=== PATIENT | female | born 1940 | race Caucasian/White ===

== ENCOUNTER 2018-06-30 11:47 | Inpatient (IN) | payer MEDICARE, OTHER ==
[~2018-06-30] VITALS: Ht 157.5 cm; Wt 70.0 kg
[~2018-06-30 11:47] MED LIST: ALEN70TA5; AMLO-147; ASPI-650; ATOR40TA21; BENA20TA4; BIMA2.5D4; BRIM5DRO11; CALC1TAB3; DORZ10DR22; FENO134C; FURO40TA4; HYDR-13; INSU100C5; INSU100V19; LEVA15HF6; LEVO75TA59; MECL-77; METF850T13; METO25TA54; MURO; NAPR-688; OMEG-135; OMEP20CA16; PIOG30TA19; PL1OP15; POTA8TAB46; PRAM0.2539
[2018-06-30] MEDS ORDERED: SOD CHLORIDE 0.9% 500 ML IV STA (12:26)
--- NOTE | 2018-06-30 12:57 | ERD ---
ER Documentation Chief Complaint Chief Complaint blood in stool x 3 days, skin color wnl, sent [place] pmd HPI 77-year-old woman complains of 3 days of bright red blood per rectum, remote history of hemorrhoids and hemorrhoidectomy. Patient denies abdominal pain but states she has been feeling weak and has had some dizziness, she was referred here by PMD for anemia and hemorrhoidal bleeding. She denies chest pain or shortness of breath, no vomiting or diarrhea, no fevers or chills. ROS All systems reviewed and are negative except as per history of present illness. Medications Home Meds Reported Medications Sodium Chloride* (Chaitanya-128*) 3.5 Gm Oint..gm., 1 APPLIC BOTH EYES QHS, TUB 06/30/18 Travoprost* (Travatan Z*) 2.5 Ml Drops, 1 DROP BOTH EYES HS, #1 BOTTLE 06/30/18 Pilocarpine Hcl* (Pilocarpine Hcl*) 1% - 15 Ml Drops, 1 DROP BOTH EYES QID, EA 06/30/18 Brimonidine Tartrate* (Alphagan P*) 0.1%-15 Ml Opht Drops, 1 DROP BOTH EYES Q8, #1 EA 06/30/18 Dorzolamide Hcl* (Dorzolamide Hcl*) 10 Ml Drops, 1 DROP BOTH EYES TID, #1 EA 06/30/18 Ezetimibe* (Zetia*) 10 Mg Tablet, 10 MG PO HS, TAB 06/30/18 Fenofibrate Nanocrystallized* (Fenofibrate*) 145 Mg Tablet, 145 MG PO DAILY, TAB 06/30/18 Cyclobenzaprine Hcl* (Cyclobenzaprine Hcl*) 10 Mg Tablet, 10 MG PO DAILY PRN for MUSCLE SPASMS, #60 TAB 06/30/18 Metoprolol Tartrate* (Lopressor*) 50 Mg Tab, 50 MG PO BID, #60 TAB 06/30/18 Magnesium Oxide* (Magnesium Oxide*) 400 Mg Tablet, 400 MG PO DAILY, TAB 06/30/18 Calcium Carbonate ([id number]) 500 Mg Tablet, 500 MG PO BID, TAB 06/30/18 Donepezil* (Donepezil*) 5 Mg Tablet, 5 MG PO DAILY, #30 TAB 06/30/18 Albuterol/Ipratropium* (Combivent Respimat*) 20-100 Mcg/Inh - 4 Gm Aer.w.adap, 1 PUFF INHALATION DAILY PRN for prn, #1 INHALER 06/30/18 Ferrous Sulfate* (Ferrous Sulfate*) 325 Mg Tabec, 325 MG PO BID, TAB 06/30/18 Ergocalciferol (Vitamin D2) (VITAMIN D2) 50,000 Unit Capsule, 88246 UNIT PO weekly, CAP 06/30/18 Celecoxib* (Celebrex*) 200 Mg Capsule, 200 MG PO DAILY, CAP 06/30/18 Meclizine Hcl* (Meclizine Hcl*) 25 Mg Tablet, 25 MG PO DAILY PRN for DIZZINESS, TAB 06/30/18 Atorvastatin* (Atorvastatin*) 40 Mg Tablet, 40 MG PO QHS, #30 TAB 06/30/18 Aspirin* (Aspirin* EC) 81 Mg Tablet.dr, 81 MG PO DAILY, TAB 06/30/18 Levothyroxine Sodium* (Levothyroxine Sodium*) 50 Mcg Tablet, 50 MCG PO BEFORE BREAKFAST, #30 TAB 06/30/18 Omeprazole* (Omeprazole*) 20 Mg Capsule.dr, 20 MG PO AC BREAKFAST, #30 CAP 06/30/18 Metformin* (Glucophage*) 1,000 Mg Tablet, 1000 MG PO BID, #60 TAB 06/30/18 Liraglutide (Victoza 3-Nico) 0.6 Mg/0.1 Ml Pen.injctr, 0.6 MG SQ DAILY, SYR 06/30/18 Discontinued Reported Medications Aspirin* (Aspirin* Chew) 81 Mg Tab.chew, 81 MG PO DAILY, TAB.CHEW 06/30/18 Levothyroxine Sodium* (Levothyroxine Sodium*) 50 Mcg Tablet, 50 MCG PO BEFORE BREAKFAST, #30 TAB 06/30/18 Levalbuterol* (Xopenex* HFA) 15 Gm Inha 05/21/10 Alendronate Sodium* (Fosamax*) 70 Mg Tablet 05/21/10 Bimatoprost (Lumigan) 2.5 Ml Drops 05/21/10 Dorzolamide-Timolol* (Cosopt*) 10 Ml Soln 05/21/10 Sodium Chloride* (Chaitanya-128*) 15 Ml Drops 05/21/10 Benazepril Hcl* (Benazepril Hcl*) 20 Mg Tablet 05/21/10 Pramipexole* (Mirapex*) 0.25 Mg Tablet 05/21/10 Amlodipine Besylate* (Amlodipine Besylate*) 10 Mg Tablet 05/21/10 Pioglitazone Hcl* (Actos*) 30 Mg Tablet 05/21/10 Pilocarpine Hcl* (Isopto Carpine*) 15 Ml Drops 05/21/10 Aspirin (Aspirin) 81 Mg Tablet 05/21/10 Fenofibrate, Micronized (Fenofibrate) 134 Mg Capsule 05/21/10 Fish Oil* (Fish Oil*) 1,000 Mg Cap 05/21/10 Furosemide* (Furosemide*) 40 Mg Tablet 05/21/10 Meclizine Hcl* (Meclizine Hcl*) 25 Mg Tablet 05/21/10 Metformin Hcl* (Metformin Hcl*) 850 Mg Tablet 05/21/10 Omeprazole* (Omeprazole*) 20 Mg Capsule. 05/21/10 Potassium Chloride (Potassium Chloride) 8 Meq Tablet.sa 05/21/10 Metoprolol Succinate (Toprol Xl) 25 Mg Tab.sr.24h 05/21/10 Calcium Carbonate/Vitamin D3 (Caltrate 600 W-D Tablet) 1 Tab Tablet 05/21/10 Atorvastatin (Lipitor) 40 Mg Tablet 05/21/10 Brimonidine Tartrate* (Alphagan P*) 10 Ml Drops 05/21/10 Levothyroxine Sodium (Levothroid) 75 Mcg Tablet 05/21/10 Hydrocodone Bit/Acetaminophen (Hydrocodone-Apap 5-500 Tab) 1 Tab Tablet 05/21/10 Naproxen* (Naproxen*) 500 Mg Tablet 05/21/10 Insulin Glargine,Hum.rec.anlog (Lantus) 100 U/Ml Cartridge 05/21/10 Insulin Glargine,Hum.rec.anlog (Lantus) 100 U/Ml Vial 05/21/10 Allergies Allergies: Coded Allergies: No Known Allergy (Verified Allergy, Mild, 05/21/10) PMhx/Soc Diabetes mellitus, hypertension, CAD, history of hemorrhoids History of Surgery: Yes (PACE MAKER,HIP REPLACEMENT,EYE SURGERY) Anesthesia Reaction: No Hx Neurological Disorder: No Hx Respiratory Disorders: Yes (HX.ASTHMA) Hx Cardiac Disorders: Yes (PACE MAKER -2008) Hx Psychiatric Problems: No Hx Miscellaneous Medical Probl: Yes (DM,HTN,CHOLETHIASIS,DYSLIPIDEMIA,DIVERTICULOSIS,GALLSTONES,CARDIOMEGALY) Hx Alcohol Use: No Hx Substance Use: No Hx Tobacco Use: No Smoking Status: Never smoker FmHx Family History: No diabetes Physical Exam Vitals Vital Signs Date Temp Pulse Resp B/P (MAP) Pulse Ox O2 O2 Flow FiO2 Time Delivery Rate 06/30/18 97.8 81 18 153/84 100 Room Air 14:46 (107) 06/30/18 97.8 82 16 177/82 100 Room Air 12:24 (113) 06/30/18 97.8 98 16 190/95 97 11:52 (126) Physical Exam GENERAL: Well-developed, well-nourished, well-hydrated, in no apparent distress, looks nontoxic in appearance HEENT: Moist mucous membranes, pink conjunctiva, no cervical spine tenderness or step-off deformities, no goiter, no jaundice or icterus, extraocular movements intact without pain. No submandibular induration, and no pharyngeal erythema NEURO: Alert and oriented 3, cranial nerves II through XII intact bilaterally, pupils equal round reactive to light, no focal deficits or facial asymmetry, sensation intact distally Strength 5/5 in upper and lower extremities bilaterally CARDIAC: Regular rate and rhythm, no murmurs rubs or gallops LUNGS: Clear bilaterally no wheezing crackles or stridor ABDOMEN: Soft nontender, no guarding, no rigidity, no rebound, no psoas sign no obturator sign. SKIN: Warm and dry to touch, no abrasions, contusions, or hematomas, no lacerations, no ecchymosis, no target lesions, and without ulcers EXTREMITIES: No clubbing cyanosis or edema, calves are bilaterally symmetrical, no Homans sign, no popliteal cord sign. Distal pulses equal and bilateral PSYCH: Normal affect without agitation or irritability Result Diagram: 06/30/18 1246 07/01/18 0550 Results 24 hrs Laboratory Tests Test 06/30/18 12:46 White Blood Count 6.1 10^3/ul Red Blood Count 4.80 10^6/ul Hemoglobin 13.7 g/dl Hematocrit 41.5 % Mean Corpuscular Volume 86.5 fl Mean Corpuscular Hemoglobin 28.5 pg Mean Corpuscular Hemoglobin Concent 33.0 g/dl Red Cell Distribution Width 13.5 % Platelet Count 193 10^3/UL Mean Platelet Volume 9.9 fl Immature Granulocytes % 1.200 % Neutrophils % 59.4 % Lymphocytes % 28.3 % Monocytes % 7.8 % Eosinophils % 2.5 % Basophils % 0.8 % Nucleated Red Blood Cells % 0.0 /100WBC Immature Granulocytes # 0.070 10^3/ul Neutrophils # 3.6 10^3/ul Lymphocytes # 1.7 10^3/ul Monocytes # 0.5 10^3/ul Eosinophils # 0.2 10^3/ul Basophils # 0.1 10^3/ul Nucleated Red Blood Cells # 0.0 10^3/ul Prothrombin Time 13.1 Sec Prothrombin Time Ratio 1.0 INR International Normalized Ratio 0.98 Activated Partial Thromboplast Time 29.6 Sec Urine Color STRAW Urine Clarity CLEAR Urine pH 6.0 Urine Specific [place] 1.009 Urine Ketones NEGATIVE mg/dL Urine Nitrite NEGATIVE mg/dL Urine Bilirubin NEGATIVE mg/dL Urine Urobilinogen NEGATIVE mg/dL Urine Leukocyte Esterase NEGATIVE Sameer/ul Urine Hemoglobin NEGATIVE mg/dL Urine Glucose 1+ mg/dL Urine Total Protein NEGATIVE mg/dl Sodium Level 136 mmol/L Potassium Level 4.0 mmol/L Chloride Level 98 mmol/L Carbon Dioxide Level 28 mmol/L Anion Gap 10 Blood Urea Nitrogen 17 mg/dl Creatinine 0.69 mg/dl Est Glomerular Filtrat Rate mL/min mL/min Glucose Level 138 mg/dl Calcium Level 10.0 mg/dl Total Bilirubin 0.5 mg/dl Direct Bilirubin 0.00 mg/dl Indirect Bilirubin 0.5 mg/dl Aspartate Amino Transf (AST/SGOT) 25 IU/L Alanine Aminotransferase (ALT/SGPT) 24 IU/L Alkaline Phosphatase 57 IU/L Troponin I < 0.012 ng/ml Total Protein 8.1 g/dl Albumin 4.3 g/dl Globulin 3.80 g/dl Albumin/Globulin Ratio 1.13 Lipase 118 U/L Current Medications Medications Dose Sig/Umesh Start Time Status Last (Trade) Ordered Route PRN Stop Time Admin Dose Reason Admin Sodium 500 ml @ Q1H STAT 06/30/18 DC 06/30/18 Chloride 500 mls/hr IV 12:26 12:26 06/30/18 13:25 10 mg DAILY PRN 06/30/18 Cyclobenzapri PO MUSCLE 15:00 ne HCl SPASMS (Flexeril) Meclizine 25 mg DAILY PRN 06/30/18 07/01/18 HCl PO DIZZINESS 15:00 13:35 (Antivert) Procedures/MDM IV line was established patient was placed on cardiac technician rhythm strip revealed a sinus rhythm at about 90 bpm with upright P and T waves. Patient was afebrile Administered 1 L normal saline IV, type and screen was ordered the patient is anemic she will be transfused. EKG performed, read by me revealed a normal sinus rhythm at 92 bpm, normal axis, narrow QRS complex, no concerning ST elevations or depressions noted CT scan of the abdomen and pelvis was performed, diverticulosis was noted, no acute inflammatory infectious pathology. Please refer to radiologist dictation for full report Chest X-ray 1V Interpreted by me: Soft Tissue: No acute abnormalities Bones: No acute abnormalities Mediastinum/Cardiac Silhouette/Lungs: No acute abnormalities Labs: CBC and electrolytes are normal, liver function tests were normal, coagulation profile was normal Patient admitted to [facility] for continued medical management as well as GI and surgical consultation. I spoke to both Dr. Zaman and Dr. Chowdhury Departure Diagnosis: Primary Impression: Rectal bleeding Additional Impression: Bleeding hemorrhoids Condition: PAM Chahal MD Jun 30, 2018 12:57
[2018-06-30] MEDS ORDERED: LIRA0.6P2 SQ (13:48)
[2018-06-30] MEDS ORDERED: MTF1000T PO (13:48)
[2018-06-30] MEDS ORDERED: ASPI-903 PO (13:49)
[2018-06-30] MEDS ORDERED: LEVO50TA7 PO (13:49)
[2018-06-30] MEDS ORDERED: OMEP20CA16 PO (13:49)
[2018-06-30] MEDS ORDERED: MECL-77 PO (13:50)
[2018-06-30] MEDS ORDERED: ASPI-817 PO (13:50)
[2018-06-30] MEDS ORDERED: ATOR40TA68 PO (13:50)
[2018-06-30] MEDS ORDERED: CELE200C PO (13:51)
[2018-06-30] MEDS ORDERED: ERGO500013 PO (13:51)
[2018-06-30] MEDS ORDERED: DONE5TAB7 PO (13:52)
[2018-06-30] MEDS ORDERED: IPRA4AER INHALATION (13:52)
[2018-06-30] MEDS ORDERED: FER325 PO (13:52)
[2018-06-30] MEDS ORDERED: METO-429 PO (13:53)
[2018-06-30] MEDS ORDERED: CALC500T91 PO (13:53)
[2018-06-30] MEDS ORDERED: MAGN400T28 PO (13:53)
[2018-06-30] MEDS ORDERED: EZET10TA31 PO (13:54)
[2018-06-30] MEDS ORDERED: CYCL10TA7 PO (13:54)
[2018-06-30] MEDS ORDERED: FENO145T37 PO (13:54)
[2018-06-30] MEDS ORDERED: PL1OP15 BOTH EYES (13:56)
[2018-06-30] MEDS ORDERED: BRIM15DR2 BOTH EYES (13:56)
[2018-06-30] MEDS ORDERED: DORZ10DR5 BOTH EYES (13:56)
[2018-06-30] MEDS ORDERED: TRAV2.5D BOTH EYES (13:56)
[2018-06-30] MEDS ORDERED: SODI3.5O4 BOTH EYES (13:57)
--- NOTE | 2018-06-30 14:53 | HP ---
Date/Time of Note Date/Time of Note DATE: 06/30/18 TIME: 14:41 Assessment/Plan VTE Prophylaxis Pharmacological prophylaxis: NA/contraindicated Pharm contraindication: low risk/ambulating Lines/Catheters IV Catheter Type (from Nrs): [place] [employer] Central line still needed: No Urinary Cath still in place: No Reason Cath still needed: urinary retention Assessment/Plan Assessment/Plan 1 rectal bleeding. History of previous rectal bleeding presence of hemorrhoids and diverticular disease. 2. Anemia of chronic disease with decline of H&H 3. History of hypertension now normotensive 4. Status post pacemaker implantation due to sick sinus syndrome and bradycar sai 5. Severe osteoporosis with a history of vertebral collapse with radiculopathy 6. History of cholelithiasis 7. Diabetes type 2 improved after weight loss 8. Bronchiectasis with history of recurrent bleeding hemoptysis. No significant bleeding the last more than 2 years; frequent episodes of pneumonia and on antibiotics multiple times. 9. Bronchial asthma on multiple inhalers 10. Dyslipidemia 11. Memory impairment 12. Glaucoma 13. Recurrent episodes of conjunctivitis 14. Pelvic arterial disease 15. 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 Hypertension with CHF out of control 16. Urinary incontinence with recurrent UTIs and history of cystocele 17. Hearing impairment 18.history of passing stone nephrolithiasis 19. Recurrent UTIs 20. Seasonal allergies 21.incomplete data Result Diagram: 06/30/18 1246 06/30/18 1246 Results 24hrs Laboratory Tests Test 06/30/18 12:46 White Blood Count 6.1 Red Blood Count 4.80 Hemoglobin 13.7 Hematocrit 41.5 Mean Corpuscular Volume 86.5 Mean Corpuscular Hemoglobin 28.5 L Mean Corpuscular Hemoglobin Concent 33.0 Red Cell Distribution Width 13.5 Platelet Count 193 Mean Platelet Volume 9.9 Immature Granulocytes % 1.200 H Neutrophils % 59.4 Lymphocytes % 28.3 Monocytes % 7.8 Eosinophils % 2.5 Basophils % 0.8 Nucleated Red Blood Cells % 0.0 Immature Granulocytes # 0.070 H Neutrophils # 3.6 Lymphocytes # 1.7 Monocytes # 0.5 Eosinophils # 0.2 Basophils # 0.1 Nucleated Red Blood Cells # 0.0 Prothrombin Time 13.1 Prothrombin Time Ratio 1.0 INR International Normalized Ratio 0.98 Activated Partial Thromboplast Time 29.6 Urine Color STRAW Urine Clarity CLEAR Urine pH 6.0 Urine Specific [place] 1.009 Urine Ketones NEGATIVE Urine Nitrite NEGATIVE Urine Bilirubin NEGATIVE Urine Urobilinogen NEGATIVE Urine Leukocyte Esterase NEGATIVE Urine Hemoglobin NEGATIVE Urine Glucose 1+ H Urine Total Protein NEGATIVE Sodium Level 136 Potassium Level 4.0 Chloride Level 98 Carbon Dioxide Level 28 Anion Gap 10 Blood Urea Nitrogen 17 Creatinine 0.69 Est Glomerular Filtrat Rate mL/min Glucose Level 138 Calcium Level 10.0 Total Bilirubin 0.5 Direct Bilirubin 0.00 Indirect Bilirubin 0.5 Aspartate Amino Transf (AST/SGOT) 25 Alanine Aminotransferase (ALT/SGPT) 24 Alkaline Phosphatase 57 Troponin I < 0.012 Total Protein 8.1 Albumin 4.3 Globulin 3.80 H Albumin/Globulin Ratio 1.13 Lipase 118 HPI/ROS Admit Date/Time Admit Date/Time 3-day history of persistent rectal bleeding with bright red blood. Weakness dizziness. Hx of Present Illness This is a 77 years old white female with history of having hemorrhoidal disease and previous history of rectal bleeding now is having a new onset of rectal bleeding. She is on multiple medications. Came today in the morning to the emergency room. Looked pale dizzy and short of breath. I have decided to admit the patient to find exact source of bleeding manage. I discussed with Dr. Tao; Surgeon for evaluation and Dr. Chowdhury for GI evaluation. Labs are pending. ROS Constitutional: chills, diaphoresis, disoriented, nausea, poor po, weight change (She lost about 3 pounds during the last month mainly by not eating.); No no complaints, No improved, No fatigue, No febrile, No other Eyes: redness, visual change; No no complaints, No pain, No discharge, No other ENT: congestion; No no complaints, No bleeding, No pain, No discharge, No dysphagia, No sore throat, No other Respiratory: cough, pleuritic pain, shortness of breath, sputum, wheezing; No no complaints, No pain, No other Cardiovascular: chest pain, lightheadedness, palpitations, paroxysmal nocturnal dyspnea; No no complaints, No edema, No orthopenea, No other Gastrointestinal: decreased appetite, passing stool, other (Rectal bleeding.); No no complaints, No pain, No blood, No constipation, No diarrhea, No flatus, No nausea, No vomiting Genitourinary: No no complaints, No bleeding, No dysuria, No discharge, No flank pain, No hematuria, No other Musculoskeletal: back pain, bone/joint pain, neck pain; No no complaints, No restricted range of motion, No swelling, No other Skin: pruritis, rash, other (Dry skin.); No no complaints, No bruising, No erythema, No laceration, No skin lesions Neurologic: No no complaints, No confusion, No dizziness, No focal-weakness, No headache, No syncope, No seizure, No other Endocrine: dry skin; No no complaints, No polyuria, No polydypsia, No temp intolerance, No weight change, No other Lymphatic: No no complaints, No adenopathy, No tender nodes, No lymphadema, No other PMH/Family/Social Past Medical History Medical History: angina, colitis, congestive heart failure, coronary artery disease, diabetes, diverticulitis, gallstones, GERD, GI bleed, high cholesterol, hypertension, irritable bowel syndrome, pancreatitis, peptic ulcer disease, renal disease, urinary tract infection Medications Current Medications Aspirin (Halfprin) 81 mg DAILY PO ; Start 06/30/18 at 15:00; Status UNV Atorvastatin Calcium (Lipitor) 40 mg QHS PO ; Start 06/30/18 at 21:00; Status UNV Brimonidine Tartrate (Alphagan P 0.1%) 1 drop Q8 BOTH EYES ; Start 06/30/18 at 15:00; Status UNV Calcium Carbonate (Oyster Shell Calcium) 0.5 gm BID PO ; Start 06/30/18 at 15:00; Status UNV Celecoxib (Celebrex) 200 mg DAILY PO ; Start 06/30/18 at 15:00; Status UNV Cyclobenzaprine HCl (Flexeril) 10 mg DAILY PRN PO MUSCLE SPASMS; Start 06/30/18 at 15:00; Status UNV Dorzolamide HCl (Trusopt) 1 drop TID BOTH EYES ; Start 06/30/18 at 21:00; Status UNV Ferrous Sulfate (Ferrous Sulfate (Ec)) 325 mg BID PO ; Start 06/30/18 at 15:00; Status UNV Levothyroxine Sodium (Synthroid) 50 mcg BEFORE BREAKFAST PO ; Start 07/01/18 at 07:00; Status UNV Magnesium Oxide (Mag-Ox 400) 400 mg DAILY PO ; Start 06/30/18 at 15:00; Status UNV Meclizine HCl (Antivert) 25 mg DAILY PRN PO DIZZINESS; Start 06/30/18 at 15:00; Status UNV Metformin HCl (Glucophage) 1,000 mg BID PO ; Start 06/30/18 at 15:00; Status UNV Metoprolol Tartrate (Lopressor) 50 mg BID PO ; Start 06/30/18 at 15:00; Status UNV Pilocarpine HCl (Isopto Carpine 1% Oph) 1 drop QID BOTH EYES ; Start 06/30/18 at 15:00; Status UNV Sodium Chloride (Chaitanya-128 Oph Oint) 1 applic QHS BOTH EYES ; Start 06/30/18 at 21:00; Status UNV Travoprost (Travatan) 1 drop HS BOTH EYES ; Start 06/30/18 at 21:00; Status UNV Albuterol (Proventil 0.083% (Neb)) 2.5 mg TID HHN ; Start 06/30/18 at 21:00; Status UNV Coded Allergies: No Known Allergy (Verified Allergy, Mild, 05/21/10) Past Surgical History Past Surgical Hx: angioplasty Family History Significant Family History: asthma, heart disease, COPD, diabetes, hypertension, lung disease Social History Alcohol Use: none Smoking Status: Never smoker Drug Use: none Exam/Review of Systems Vital Signs Vitals Vital Signs Date Temp Pulse Resp B/P (MAP) Pulse Ox O2 O2 Flow FiO2 Time Delivery Rate 06/30/18 97.8 82 16 177/82 100 Room Air 12:24 (113) Exam Constitutional: alert, oriented, well developed, distress, frail, other (Difficulty to walk. Getting tired easily.) Psych: anxiety, confusion, depression Head: normocephalic, atraumatic; No lacerations, No hematomas, No other Eyes: EOMI, nl lids, PERRL, icteric; No nl conjunctiva, No nl sclera, No fundi, disc, No other Neck: supple, jvd, bruits, nuchal rigidity; No non-tender, No masses, No thyromegaly, No other Respiratory: congested cough, diminished breath sounds, wheezing; No clear to auscultation, No normal air movement, No crackles/rales, No intercostal retraction, No labored breathing, No respirations, No tactile fremitus, No other Cardiovascular: regular rate and rhythm, nl pulses, bruits, edema, systolic murmur; No diastolic murmur, No gallop, No irregular rhythm, No jugular venous distention (JVD), No murmurs/extra sounds, No rub, No S3, No S4, No other Gastrointestinal: soft, nl liver, spleen, bowel sounds, other (Mildly tender mid abdomen and left lower quadrant with no rebound.); No non-tender, No ascites, No distended, No firm, No hepatomegaly, No mass, No rebound or guarding, No splenomegaly, No surgical scars, No tender Genitourinary - Female: nl adnexae, nl external genitalia; No CMT, No CVA tenderness, No uterus, No other Musculoskeletal: nl gait and stance (Unstable.), joint tenderness, muscle tone, muscle weakness, other (Status post right hip replacement with well-healed postsurgical scar.); No nl extremities to inspection, No range of motion, No spine non-tender, No swelling Extremities: normal pulses, clubbing 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
[2018-06-30] MEDS ORDERED: CYCLOBENZAPRINE 10 MG TAB PO PRN (15:00)
[2018-06-30] MEDS ORDERED: MECLIZINE 25 MG TAB PO PRN (15:00)
[2018-06-30 15:57] VITALS: BP 151/76; PULSE 90
[2018-06-30] MEDS ORDERED: GLUCAGON 1 MG INJ IM PRN (16:00)
[2018-06-30] MEDS ORDERED: ASPIRIN (EC) 81 MG TAB PO SCH (16:00)
[2018-06-30] MEDS ORDERED: GLUCOSE GEL 15 GRAM TUBE PO PRN ×2 (16:00)
[2018-06-30] MEDS ORDERED: DEXTROSE 50% 50 ML SYRINGE IV PRN ×2 (16:00)
[2018-06-30] MEDS ORDERED: GLUCOSE GEL 15 GRAM TUBE BUCCAL PRN (16:00)
[2018-06-30 16:28] VITALS: Ht 157.5 cm; Wt 70.0 kg
[2018-06-30] MEDS: ALBUTEROL 0.083% (NEB) 2.5 MG/3 ML AMP HHN SCH (17:04)
--- NOTE | 2018-06-30 17:19 | CONS ---
DATE OF ADMISSION: 06/30/2018 DATE OF CONSULTATION: 06/30/2018 The consultation has been requested by Dr. Weathers from Dr. Zaman and I am covering for Dr. Zaman, so I see the patient in consultation. REASON FOR CONSULTATION: Evaluate the patient for rectal bleeding. CHIEF COMPLAINT AND HISTORY OF PRESENT ILLNESS: In the emergency room, the patient states that in past 3 days namely since Friday, today is Friday, the patient has had daily bowel movement which had been mixed with fresh red blood. No diarrhea. No nausea, no vomiting. The patient has lost 10 pounds in past 3 months. PAST MEDICAL HISTORY: Diabetes mellitus, hypertension, cholelithiasis, dyslipidemia, diverticulosis, gallstones, cardiomegaly, congestive heart failure, coronary artery disease, pacemaker. Beside what was mentioned in history of present illness, the patient has been admitted in this hospital 10 years in 2009 because of hemoptysis and was diagnosed to have bronchiectasis in the right middle lobe and on this admission, the CT scan of the abdomen which included part of the lungs has revealed presence of bronchiectasis also in both right and left lower lobes. ALLERGIES: NOT KNOWN. MEDICATIONS: Please refer to reconciliation list of the medications. The patient is taking many medications at home. PAST SURGICAL HISTORY: 1. Right hip replacement. 2. Eye surgery for glaucoma several years ago. 3. History of hemorrhoid operation in 1993. 4. He has done colonoscopy 17 years ago. Since then, she has not had it. PHYSICAL EXAMINATION: GENERAL: The patient is awake, alert, oriented x3, in no acute distress. VITAL SIGNS: Last vital signs showed temperature 97.8, heart rate 81, respiration 18, blood pressure 153/84, saturation 100% on room air. HEAD AND NECK: Within normal limits. Trachea is in midline. There is no carotid bruit. CHEST: Symmetrical expansion. HEART: Regular rate and rhythm. No murmurs. LUNGS: Decreased breathing sound at bases. ABDOMEN: Mildly protruded with fat. There is evidence of injection of the insulin subcutaneously in the abdominal wall. Bowel sounds are present. There is some tenderness in both lower quadrants, more on the left side. No guarding, no rigidity, no rebound tenderness. EXTREMITIES: Lower extremities have no pitting edema. RECTAL: There is some tightness of the sphincter most probably due to previous operation of the hemorrhoid that she had many years ago, but grossly I cannot feel hemorrhoidal tissues but this has to be more evaluated by endoscopy and/or colonoscopy later on. LABORATORY RESULTS: WBC is 6100 today with 59% segmented, hemoglobin is 13.7, hematocrit 41.5, platelet count is 193. Chemistry: Sodium, potassium normal, BUN and creatinine normal. Globulin is slightly elevated at 3.80, albumin is 4.3. Glucose is 138. Coagulation profile: PT is normal at 13.1, INR is 0.98. Urine only shows 1+ glucose. IMAGING: Abdomen and pelvis CT scan was done today in the emergency room and was reported as follows: 1. No evidence of calcified urinary calculi or obstructive uropathy. No change in bilateral renal cyst with partial wall calcification. 2. Diverticulosis of sigmoid colon without CT evidence of diverticulitis. 3. Cholelithiasis which appears unchanged. No evidence of biliary ductal dilatation. 4. Hepatic fatty infiltration. IMPRESSION: 1. This is a 77-year-old female who presents because of 3 days having had stool mixed with blood per rectum. No diarrhea. The patient also admits to weight loss of 10 pounds in past 3 months. No nausea, no vomiting. With the impression of rectal bleeding, rule out colorectal pathology including malignancy, rule out bleeding from diverticular disease, rule out arteriovenous malformation and also consider the possibility of hemorrhoids. 2. The patient has history of hypertension. 3. Status post pacemaker placement. 4. Osteoporosis, vertebral collapse with radiculopathy. 5. History of asymptomatic cholelithiasis. 6. Diabetes mellitus type 2. 7. Bronchiectasis. 8. Dyslipidemia. 9. Glaucoma and history of operation for that. 10. Severe osteoarthritis of multiple joints. 11. History of right hip total replacement. 12. History of recurrent urinary tract infection and urinary incontinence. 13. History of hearing impairment. PLAN: The patient should have a GI consultation per Dr. Weathers's choice and should have a colonoscopy at least and most probably also should have EGD as well. After evaluation by colonoscopy, further recommendation will be made as far as surgery is concerned. Meanwhile, I am going to be following the patient closely with other colleagues. We will keep the patient on clear liquids. Dictated By: KEATON BERRY/BECK Conf#: [id number] [facility]#: [id number] CC: RAJAT WEATHERS MD; TAYLOR LORD MD;*EndCC* MTDD
[2018-06-30] MEDS: metFORMIN 500 MG TAB PO SCH (17:24)
[2018-06-30] MEDS: FERROUS SULFATE (EC) 325 MG TAB PO SCH (17:24)
[2018-06-30] MEDS: MAGNESIUM OXIDE 400 MG TAB PO SCH (17:24)
[2018-06-30] MEDS: CALCIUM CARBONATE 1.25 GM TAB PO SCH (17:25)
[2018-06-30] MEDS: BRIMONIDINE 0.1% 5 ML OPH BOTH EYES SCH ×2 (17:25→21:28)
[2018-06-30] MEDS: CELECOXIB 200 MG CAP PO SCH (17:25)
[2018-06-30] MEDS: METOPROLOL 50 MG TAB PO SCH (17:25)
[2018-06-30] MEDS: PILOCARPINE 1% BOTH EYES SCH ×2 (17:26→20:45)
[2018-06-30] MEDS ORDERED: INSULIN ASPART [NOVOLOG] 3 ML PEN SC SCH ×2 (18:00)
[2018-06-30] MEDS ORDERED: PEG/ELECTROLYTES 4L BTL PO ONE (18:30)
[2018-06-30 20:00] VITALS: BP 150/83; PULSE 91; RESP 17
[2018-06-30] MEDS: ATORVASTATIN 40 MG TAB PO SCH (20:45)
[2018-06-30] MEDS: DORZOLAMIDE 2% 10 ML OPH BOTH EYES SCH (20:46)
[2018-06-30] MEDS: LATANOPROST 0.005% 2.5 ML OPH BOTH EYES SCH ×2 (20:46→20:55)
[2018-06-30] MEDS: SODIUM CHLORIDE 5% 2.5 GM OPH OINT BOTH EYES SCH (20:47)
--- NOTE | 2018-06-30 21:27 | CONS ---
Date/Time of Note Date/Time of Note DATE: 06/30/18 TIME: 21:19 Assessment/Plan Assessment/Plan Hospital Course rectal bleeding. History of previous rectal bleeding presence of hemorrhoids and diverticular disease. Anemia of chronic disease with decline of H&H proceed with w-up monitor h/h transfuse as needed GI and surg eval History of hypertension now normotensive Status post pacemaker implantation due to sick sinus syndrome and bradycardia Severe osteoporosis with a history of vertebral collapse with radiculopathy History of cholelithiasis Diabetes type 2 improved after weight loss Bronchiectasis with history of recurrent bleeding hemoptysis. No significant bleeding the last more than 2 years; frequent episodes of pneumonia and on antibiotics multiple times. 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 Hypertension with CHF out of control Urinary incontinence with recurrent UTIs and history of cystocele Hearing impairment history of passing stone nephrolithiasis Recurrent UTIs Seasonal allergies incomplete data Result Diagram: 06/30/18 1246 06/30/18 1246 Results 24hrs Laboratory Tests Test 06/30/18 12:46 06/30/18 17:19 White Blood Count 6.1 Red Blood Count 4.80 Hemoglobin 13.7 Hematocrit 41.5 Mean Corpuscular Volume 86.5 Mean Corpuscular Hemoglobin 28.5 L Mean Corpuscular Hemoglobin Concent 33.0 Red Cell Distribution Width 13.5 Platelet Count 193 Mean Platelet Volume 9.9 Immature Granulocytes % 1.200 H Neutrophils % 59.4 Lymphocytes % 28.3 Monocytes % 7.8 Eosinophils % 2.5 Basophils % 0.8 Nucleated Red Blood Cells % 0.0 Immature Granulocytes # 0.070 H Neutrophils # 3.6 Lymphocytes # 1.7 Monocytes # 0.5 Eosinophils # 0.2 Basophils # 0.1 Nucleated Red Blood Cells # 0.0 Prothrombin Time 13.1 Prothrombin Time Ratio 1.0 INR International Normalized Ratio 0.98 Activated Partial Thromboplast Time 29.6 Urine Color STRAW Urine Clarity CLEAR Urine pH 6.0 Urine Specific [place] 1.009 Urine Ketones NEGATIVE Urine Nitrite NEGATIVE Urine Bilirubin NEGATIVE Urine Urobilinogen NEGATIVE Urine Leukocyte Esterase NEGATIVE Urine Hemoglobin NEGATIVE Urine Glucose 1+ H Urine Total Protein NEGATIVE Sodium Level 136 Potassium Level 4.0 Chloride Level 98 Carbon Dioxide Level 28 Anion Gap 10 Blood Urea Nitrogen 17 Creatinine 0.69 Est Glomerular Filtrat Rate mL/min Glucose Level 138 Calcium Level 10.0 Total Bilirubin 0.5 Direct Bilirubin 0.00 Indirect Bilirubin 0.5 Aspartate Amino Transf (AST/SGOT) 25 Alanine Aminotransferase (ALT/SGPT) 24 Alkaline Phosphatase 57 Troponin I < 0.012 Total Protein 8.1 Albumin 4.3 Globulin 3.80 H Albumin/Globulin Ratio 1.13 Lipase 118 Bedside Glucose 95 Consultation Date/Type/Reason Date of Consultation: Jun 30, 2018 Type of Consult hemeon Reason for Consultation rectal bleeding Requesting Provider: RAJAT BYRNE MD Hx of Present Illness 77-year-old woman complains of 3 days of bright red blood per rectum, remote history of hemorrhoids and hemorrhoidectomy. Patient denies abdominal pain but states she has been feeling weak and has had some dizziness, she was referred here by PMD for anemia and hemorrhoidal bleeding. She denies chest pain or shor tness of breath, no vomiting or diarrhea, no fevers or chills. ROS All systems reviewed and are negative except as per history of present illness. Medications Home Meds Reported Medications Levalbuterol* (Xopenex* HFA) 15 Gm Inha 05/21/10 Alendronate Sodium* (Fosamax*) 70 Mg Tablet 05/21/10 Bimatoprost (Lumigan) 2.5 Ml Drops 05/21/10 Dorzolamide-Timolol* (Cosopt*) 10 Ml Soln 05/21/10 Sodium Chloride* (Chaitanya-128*) 15 Ml Drops 05/21/10 Benazepril Hcl* (Benazepril Hcl*) 20 Mg Tablet 05/21/10 Pramipexole* (Mirapex*) 0.25 Mg Tablet 05/21/10 Amlodipine Besylate* (Amlodipine Besylate*) 10 Mg Tablet 05/21/10 Pioglitazone Hcl* (Actos*) 30 Mg Tablet 05/21/10 Pilocarpine Hcl* (Isopto Carpine*) 15 Ml Drops 05/21/10 Aspirin (Aspirin) 81 Mg Tablet 05/21/10 Fenofibrate, Micronized (Fenofibrate) 134 Mg Capsule 05/21/10 Fish Oil* (Fish Oil*) 1,000 Mg Cap 05/21/10 Furosemide* (Furosemide*) 40 Mg Tablet 05/21/10 Meclizine Hcl* (Meclizine Hcl*) 25 Mg Tablet 05/21/10 Metformin Hcl* (Metformin Hcl*) 850 Mg Tablet 05/21/10 Omeprazole* (Omeprazole*) 20 Mg Capsule. 05/21/10 Potassium Chloride (Potassium Chloride) 8 Meq Tablet.sa 05/21/10 Metoprolol Succinate (Toprol Xl) 25 Mg Tab.sr.24h 05/21/10 Calcium Carbonate/Vitamin D3 (Caltrate 600 W-D Tablet) 1 Tab Tablet 05/21/10 Atorvastatin (Lipitor) 40 Mg Tablet 05/21/10 Brimonidine Tartrate* (Alphagan P*) 10 Ml Drops 05/21/10 Levothyroxine Sodium (Levothroid) 75 Mcg Tablet 05/21/10 Hydrocodone Bit/Acetaminophen (Hydrocodone-Apap 5-500 Tab) 1 Tab Tablet 05/21/10 Naproxen* (Naproxen*) 500 Mg Tablet 05/21/10 Insulin Glargine,Hum.rec.anlog (Lantus) 100 U/Ml Cartridge 05/21/10 Insulin Glargine,Hum.rec.anlog (Lantus) 100 U/Ml Vial 05/21/10 Allergies Allergies: Coded Allergies: No Known Allergy (Verified Allergy, Mild, 05/21/10) PMhx/Soc Diabetes mellitus, hypertension, CAD, history of hemorrhoids History of Surgery: Yes (PACE MAKER,HIP REPLACEMENT,EYE SURGERY) Anesthesia Reaction: No Hx Neurological Disorder: No Hx Respiratory Disorders: Yes (HX.ASTHMA) Hx Cardiac Disorders: Yes (PACE MAKER -2007) Hx Psychiatric Problems: No Hx Miscellaneous Medical Probl: Yes (DM,HTN,CHOLETHIASIS,DYSLIPIDEMIA,DIVERT ICULOSIS,GALLSTONES,CARDIOMEGALY) Hx Alcohol Use: No Hx Substance Use: No Hx Tobacco Use: No Smoking Status: Never smoker FmHx Family History: No diabetes Past Medical History Medical History: angina, colitis, congestive heart failure, coronary artery disease, diabetes, diverticulitis, gallstones, GERD, GI bleed, high cholesterol, hypertension, irritable bowel syndrome, pancreatitis, peptic ulcer disease, renal disease, urinary tract infection Medications Current Medications Aspirin (Halfprin) 81 mg DAILY PO ; Start 06/30/18 at 16:00; Status Hold Atorvastatin Calcium (Lipitor) 40 mg QHS PO Last administered on 06/30/18 20:45; Admin Dose 40 MG; Start 06/30/18 at 21:00 Brimonidine Tartrate (Alphagan P 0.1%) 1 drop Q8 BOTH EYES Last administered on 06/30/18 17:25; Admin Dose 1 DROP; Start 06/30/18 at 17:00 Calcium Carbonate (Oyster Shell Calcium) 1.25 gm BID PO Last administered on 06/30/18 17:25; Admin Dose 1.25 GM; Start 06/30/18 at 17:00 Celecoxib (Celebrex) 200 mg DAILY PO Last administered on 06/30/18 17:25; Admin Dose 200 MG; Start 06/30/18 at 17:00 Cyclobenzaprine HCl (Flexeril) 10 mg DAILY PRN PO MUSCLE SPASMS; Start 06/30/18 at 15:00 Dorzolamide HCl (Trusopt) 1 drop TID BOTH EYES Last administered on 06/30/18 20:46; Admin Dose 1 DROP; Start 06/30/18 at 21:00 Ferrous Sulfate (Ferrous Sulfate (Ec)) 325 mg BID PO Last administered on 06/30/18 17:24; Admin Dose 325 MG; Start 06/30/18 at 16:00 Levothyroxine Sodium (Synthroid) 50 mcg BEFORE BREAKFAST PO ; Start 07/01/18 at 07:00 Magnesium Oxide (Mag-Ox 400) 400 mg DAILY PO Last administered on 06/30/18 17:24; Admin Dose 400 MG; Start 06/30/18 at 17:00 Meclizine HCl (Antivert) 25 mg DAILY PRN PO DIZZINESS; Start 06/30/18 at 15:00 Metformin HCl (Glucophage) 1,000 mg BID WITH MEALS PO Last administered on 06/30/18 17:24; Admin Dose 1,000 MG; Start 06/30/18 at 18:00 Metoprolol Tartrate (Lopressor) 50 mg BID PO Last administered on 06/30/18 17:25; Admin Dose 50 MG; Start 06/30/18 at 16:00 Pilocarpine HCl (Isopto Carpine 1% Oph) 1 drop QID BOTH EYES Last administered on 06/30/18 20:45; Admin Dose 1 DROP; Start 06/30/18 at 17:00 Sodium Chloride (Chaitanya-128 Oph Oint) 1 applic QHS BOTH EYES Last administered on 06/30/18at 20:47; Admin Dose 1 APPLIC; Start 06/30/18 at 21:00 Latanoprost (Xalatan) 1 drop HS BOTH EYES ; Start 06/30/18 at 21:00 Albuterol (Proventil 0.083% (Neb)) 2.5 mg TID RESP THERAPY HHN Last administered on 06/30/18at 17:04; Admin Dose 2.5 MG; Start 06/30/18 at 17:00 Glucose (Glutose) 15 gm Q15M PRN PO DECREASED GLUCOSE; Start 06/30/18 at 16:00 Glucose (Glutose) 22.5 gm Q15M PRN PO DECREASED GLUCOSE; Start 06/30/18 at 16:00 Dextrose (D50w Syringe) 25 ml Q15M PRN IV DECREASED GLUCOSE; Start 06/30/18 at 16:00 Dextrose (D50w Syringe) 50 ml Q15M PRN IV DECREASED GLUCOSE; Start 06/30/18 at 16:00 Glucagon (Glucagen) 1 mg Q15M PRN IM DECREASED GLUCOSE; Start 06/30/18 at 16:00 Glucose (Glutose) 15 gm Q15M PRN BUCCAL DECREASED GLUCOSE; Start 06/30/18 at 16:00 Diagnostic Test (Pha) (Accu-Chek) 1 ea 02 XX ; Start 07/01/18 at 02:00 Insulin Aspart (Novolog Insulin Pen) NOVOLOG *MILD* ALGORITHM Q6 SC ; Start 06/30/18 at 18:00 Influenza Virus Vaccine Quadrival (Fluzone) 0.5 ml ONCE ONCE IM* ; Start 07/01/18 at 10:00; Stop 07/01/18 at 10:01 Allergies: Coded Allergies: No Known Allergy (Verified Allergy, Mild, 05/21/10) Past Surgical History Past Surgical Hx: angioplasty Social History Alcohol Use: none Smoking Status: Never smoker Drug Use: none Exam/Review of Systems Vital Signs Vitals Vital Signs Date Temp Pulse Resp B/P (MAP) Pulse Ox O2 O2 Flow FiO2 Time Delivery Rate 06/30/18 88 16 99 21 17:05 06/30/18 98.1 151/76 Room Air 15:57 (101) Exam GENERAL: Well-developed, well-nourished, well-hydrated, in no apparent distress, looks nontoxic in appearance HEENT: Moist mucous membranes, pink conjunctiva, no cervical spine tenderness or step-off deformities, no goiter, no jaundice or icterus, extraocular movements intact without pain. No submandibular induration, and no pharyngeal erythema NEURO: Alert and oriented 3, cranial nerves II through XII intact bilaterally, pupils equal round reactive to light, no focal deficits or facial asymmetry, sensation intact distally Strength 5/5 in upper and lower extremities bilaterally CARDIAC: Regular rate and rhythm, no murmurs rubs or gallops LUNGS: Clear bilaterally no wheezing crackles or stridor ABDOMEN: Soft nontender, no guarding, no rigidity, no rebound, no psoas sign no obturator sign. SKIN: Warm and dry to touch, no abrasions, contusions, or hematomas, no lacerations, no ecchymosis, no target lesions, and without ulcers EXTREMITIES: No clubbing cyanosis or edema, calves are bilaterally symmetrical, no Homans sign, no popliteal cord sign. Distal pulses equal and bilateral PSYCH: Normal affect without agitation or irritability Medications Medications Current Medications Aspirin (Halfprin) 81 mg DAILY PO ; Start 06/30/18 at 16:00; Status Hold Atorvastatin Calcium (Lipitor) 40 mg QHS PO Last administered on 06/30/18at 20:45; Admin Dose 40 MG; Start 06/30/18 at 21:00 Brimonidine Tartrate (Alphagan P 0.1%) 1 drop Q8 BOTH EYES Last administered on 06/30/18at 17:25; Admin Dose 1 DROP; Start 06/30/18 at 17:00 Calcium Carbonate (Oyster Shell Calcium) 1.25 gm BID PO Last administered on 06/30/18at 17:25; Admin Dose 1.25 GM; Start 06/30/18 at 17:00 Celecoxib (Celebrex) 200 mg DAILY PO Last administered on 06/30/18 17:25; Admin Dose 200 MG; Start 06/30/18 at 17:00 Cyclobenzaprine HCl (Flexeril) 10 mg DAILY PRN PO MUSCLE SPASMS; Start 06/30/18 at 15:00 Dorzolamide HCl (Trusopt) 1 drop TID BOTH EYES Last administered on 06/30/18at 20:46; Admin Dose 1 DROP; Start 06/30/18 at 21:00 Ferrous Sulfate (Ferrous Sulfate (Ec)) 325 mg BID PO Last administered on 06/30/18at 17:24; Admin Dose 325 MG; Start 06/30/18 at 16:00 Levothyroxine Sodium (Synthroid) 50 mcg BEFORE BREAKFAST PO ; Start 07/01/18 at 07:00 Magnesium Oxide (Mag-Ox 400) 400 mg DAILY PO Last administered on 06/30/18at 17:24; Admin Dose 400 MG; Start 06/30/18 at 17:00 Meclizine HCl (Antivert) 25 mg DAILY PRN PO DIZZINESS; Start 06/30/18 at 15:00 Metformin HCl (Glucophage) 1,000 mg BID WITH MEALS PO Last administered on 06/30/18at 17:24; Admin Dose 1,000 MG; Start 06/30/18 at 18:00 Metoprolol Tartrate (Lopressor) 50 mg BID PO Last administered on 06/30/18at 17:25; Admin Dose 50 MG; Start 06/30/18 at 16:00 Pilocarpine HCl (Isopto Carpine 1% Oph) 1 drop QID BOTH EYES Last administered on 06/30/18at 20:45; Admin Dose 1 DROP; Start 06/30/18 at 17:00 Sodium Chloride (Chaitanya-128 Oph Oint) 1 applic QHS BOTH EYES Last administered on 06/30/18at 20:47; Admin Dose 1 APPLIC; Start 06/30/18 at 21:00 Latanoprost (Xalatan) 1 drop HS BOTH EYES ; Start 06/30/18 at 21:00 Albuterol (Proventil 0.083% (Neb)) 2.5 mg TID RESP THERAPY HHN Last administered on 06/30/18at 17:04; Admin Dose 2.5 MG; Start 06/30/18 at 17:00 Glucose (Glutose) 15 gm Q15M PRN PO DECREASED GLUCOSE; Start 06/30/18 at 16:00 Glucose (Glutose) 22.5 gm Q15M PRN PO DECREASED GLUCOSE; Start 06/30/18 at 16:00 Dextrose (D50w Syringe) 25 ml Q15M PRN IV DECREASED GLUCOSE; Start 06/30/18 at 16:00 Dextrose (D50w Syringe) 50 ml Q15M PRN IV DECREASED GLUCOSE; Start 1/22/19 at 16:00 Glucagon (Glucagen) 1 mg Q15M PRN IM DECREASED GLUCOSE; Start 06/30/18 at 16:00 Glucose (Glutose) 15 gm Q15M PRN BUCCAL DECREASED GLUCOSE; Start 06/30/18 at 16:00 Diagnostic Test (Pha) (Accu-Chek) 1 ea 02 XX ; Start 07/01/18 at 02:00 Insulin Aspart (Novolog Insulin Pen) NOVOLOG *MILD* ALGORITHM Q6 SC ; Start 06/30/18 at 18:00 Influenza Virus Vaccine Quadrival (Fluzone) 0.5 ml ONCE ONCE IM* ; Start 07/01/18 at 10:00; Stop 07/01/18 at 10:01 DOMINGO FOURNIER MD Jun 30, 2018 21:27
[2018-06-30] MEDS ORDERED: POTASSIUM CHLORIDE 50 ML IVPB PRN (23:00)
[2018-06-30] MEDS ORDERED: POTASSIUM CHLORIDE 50 ML IVPB SCH (23:00)
[2018-07-01] VITALS (12 sets, daily range): BP systolic 104–151; BP diastolic 63–78; PULSE 82–88; RESP 17–18
[2018-07-01] MEDS: FERROUS SULFATE (EC) 325 MG TAB PO SCH ×3 (01:00→20:11)
[2018-07-01] MEDS: METOPROLOL 50 MG TAB PO SCH ×3 (01:00→20:11)
[2018-07-01] MEDS: Insulin NOVOLOG SS MILD Algorithm (NPO/TPN/ENTERAL FEEDS) SC SCH ×4 (01:00→13:00)
[2018-07-01] MEDS ORDERED: INSULIN ASPART [NOVOLOG] 3 ML PEN SC SCH (01:00)
[2018-07-01] MEDS: ACCU-CHEK XX SCH (01:52)
[2018-07-01] MEDS ORDERED: ACCU-CHEK XX SCH (02:00)
[2018-07-01] MEDS: BRIMONIDINE 0.1% 5 ML OPH BOTH EYES SCH ×3 (05:15→20:13)
--- NOTE | 2018-07-01 06:09 | NUR ---
EOSS: Pt. rested comfortably overnight. No acute changes. Pt. is NPO for colonoscopy at 1130. Bowel prep in progress. Pt. is having blood in stool. Pt. denies having pain. Blood glucose monitored q4h. Will endorse care to oncoming nurse.
[2018-07-01] MEDS: LEVOTHYROXINE 50 MCG TAB PO SCH (06:19)
[2018-07-01] MEDS: metFORMIN 500 MG TAB PO SCH ×2 (08:00→17:39)
[2018-07-01] MEDS: ALBUTEROL 0.083% (NEB) 2.5 MG/3 ML AMP HHN SCH ×3 (08:05→17:34)
[2018-07-01] MEDS: CELECOXIB 200 MG CAP PO SCH (08:51)
[2018-07-01] MEDS: MAGNESIUM OXIDE 400 MG TAB PO SCH (08:52)
[2018-07-01] MEDS: CALCIUM CARBONATE 1.25 GM TAB PO SCH ×2 (08:52→20:11)
[2018-07-01] MEDS: PILOCARPINE 1% BOTH EYES SCH ×4 (08:59→20:12)
[2018-07-01] MEDS: DORZOLAMIDE 2% 10 ML OPH BOTH EYES SCH ×3 (08:59→20:13)
--- NOTE | 2018-07-01 09:02 | PN ---
Date/Time of Note Date/Time of Note DATE: 07/01/18 TIME: 08:57 Assessment/Plan VTE Prophylaxis Risk score (from Ns)>0 risk: 3 SCD applied (from [facility] [place]): No SCD contraindicated: low risk/ambulating Pharmacological prophylaxis: other (Bleeding.) Pharm contraindication: low risk/ambulating Lines/Catheters IV Catheter Type (from [place]): [place] [employer] line still needed: No Urinary Cath still in place: No Assessment/Plan Assessment/Plan 1 rectal bleeding. History of previous rectal bleeding presence of hemorrhoids and diverticular disease. Discussed with Dr. Nguyen and dr. Devine. Planned colonoscopy today. 2. Anemia of chronic disease with decline of H&H; H&H is stable. 3. History of hypertension now normotensive 4. Status post pacemaker implantation due to sick sinus syndrome and bradycardia 5. Severe osteoporosis with a history of vertebral collapse with radiculopathy 6. History of cholelithiasis 7. Diabetes type 2 improved after weight loss 8. Bronchiectasis with history of recurrent bleeding hemoptysis. No significant bleeding the last more than 2 years; frequent episodes of pneumonia and on antibiotics multiple times. 9. Bronchial asthma on multiple inhalers 10. Dyslipidemia 11. Memory impairment 12. Glaucoma 13. Recurrent episodes of conjunctivitis 14. Pelvic arterial disease 15. 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 Hypertension with CHF out of control 16. Urinary incontinence with recurrent UTIs and history of cystocele 17. Hearing impairment 18.history of passing stone nephrolithiasis 19. Recurrent UTIs 20. Seasonal allergies 21.incomplete data Result Diagram: 06/30/18 1246 07/01/18 0550 Results 24hrs Laboratory Tests Test 06/30/18 12:46 06/30/18 17:19 07/01/18 01:05 07/01/18 05:16 White Blood Count 6.1 Red Blood Count 4.80 Hemoglobin 13.7 Hematocrit 41.5 Mean Corpuscular 86.5 Volume Mean Corpuscular 28.5 L Hemoglobin Mean Corpuscular 33.0 Hemoglobin Concent Red Cell 13.5 Distribution Width Platelet Count 193 Mean Platelet Volume 9.9 Immature 1.200 H Granulocytes % Neutrophils % 59.4 Lymphocytes % 28.3 Monocytes % 7.8 Eosinophils % 2.5 Basophils % 0.8 Nucleated Red Blood 0.0 Cells % Immature 0.070 H Granulocytes # Neutrophils # 3.6 Lymphocytes # 1.7 Monocytes # 0.5 Eosinophils # 0.2 Basophils # 0.1 Nucleated Red Blood 0.0 Cells # Prothrombin Time 13.1 Prothrombin Time 1.0 Ratio INR International 0.98 Normalized Ratio Activated 29.6 Partial Thromboplast Time Urine Color STRAW Urine Clarity CLEAR Urine pH 6.0 Urine Specific 1.009 [place] Urine Ketones NEGATIVE Urine Nitrite NEGATIVE Urine Bilirubin NEGATIVE Urine Urobilinogen NEGATIVE Urine Leukocyte NEGATIVE Esterase Urine Hemoglobin NEGATIVE Urine Glucose 1+ H Urine Total Protein NEGATIVE Sodium Level 136 Potassium Level 4.0 Chloride Level 98 Carbon Dioxide Level 28 Anion Gap 10 Blood Urea Nitrogen 17 Creatinine 0.69 Est Glomerular Filtrat Rate mL/min Glucose Level 138 Calcium Level 10.0 Total Bilirubin 0.5 Direct Bilirubin 0.00 Indirect Bilirubin 0.5 Aspartate Amino 25 Transf (AST/SGOT) Alanine 24 Aminotransferase (AL T/SGPT) Alkaline Phosphatase 57 Troponin I < 0.012 Total Protein 8.1 Albumin 4.3 Globulin 3.80 H Albumin/Globulin 1.13 Ratio Lipase 118 Bedside Glucose 95 115 134 Test 07/01/18 05:50 Erythrocyte 22 Sedimentation Rate Absolute 0.116 H Reticulocyte Count Percent Reticulocyte 2.5 H Count Potassium Level 3.6 Uric Acid 4.5 Iron Level 79 Total Iron Binding 368 Capacity Percent Iron 21 L Saturation Ferritin 48.9 Lactate 347 Dehydrogenase Carcinoembryonic 0.9 Antigen Vitamin B12 Level 352 Folate 11.5 Thyroid Stimulating 2.710 Hormone (TSH) Subjective 24 Hr Interval Summary Free Text/Dictation Still I am having rectal bleeding. No pain. Constitutional: improved; No no complaints, No chills, No diaphoresis, No disoriented, No febrile, No poor po, No requiring IVF, No requiring O2, No other Eyes: redness; No no complaints, No pain, No discharge, No visual change, No other ENT: No no complaints, No bleeding, No pain, No congestion, No discharge, No dysphagia, No sore throat, No other Respiratory: No no complaints, No pain, No cough, No pleuritic pain, No shortness of breath, No sputum, No wheezing, No other Cardiovascular: lightheadedness; No no complaints, No chest pain, No edema, No orthopenea, No palpitations, No paroxysmal nocturnal dyspnea, No other Gastrointestinal: decreased appetite, flatus, passing stool; No no complaints, No pain, No blood, No constipation, No diarrhea, No nausea, No vomiting, No other Genitourinary: dysuria, flank pain; No no complaints, No bleeding, No discharge, No hematuria, No other Musculoskeletal: back pain, bone/joint pain, neck pain; No no complaints, No restricted range of motion, No swelling, No other Skin: No no complaints, No bruising, No erythema, No laceration, No pruritis, No rash, No skin lesions, No other Neurologic: confusion, dizziness, headache Endocrine: dry skin; No no complaints, No polyuria, No polydypsia, No temp intolerance, No other Psychological: anxiety, confusion; No no complaints, No nl mood/affect, No depression, No suicidal, No other Exam/Review of Systems Vital Signs Vitals Vital Signs Date Temp Pulse Resp B/P (MAP) Pulse Ox O2 O2 Flow FiO2 Time Delivery Rate 07/01/18 78 17 99 21 08:06 07/01/18 97.9 135/65 08:00 (88) 07/01/18 Room Air 02:04 Exam Constitutional: alert, oriented, well developed, distress, frail; No non-verbal, No obese, No other Psych: anxiety, depression; No no complaints, No nl mood/affect, No confusion, No suicidal, No other Head: normocephalic, atraumatic Eyes: EOMI, nl lids, PERRL; No nl conjunctiva, No nl sclera, No icteric, No fundi, disc, No other ENMT: No nl external ears & nose, No nl lips & teeth, No nl nasal mucosa & septum, No mucosa pink and moist, No intubated, No tympanic membranes, No other Neck: supple, jvd, bruits Respiratory: clear to auscultation, normal air movement, diminished breath soun ds Cardiovascular: regular rate and rhythm, bruits, other (Left-sided subclavian area pacemaker bodies palpable with no evidence of fluid accumulation.); No nl pulses, No diastolic murmur, No edema, No gallop, No irregular rhythm, No jugular venous distention (JVD), No murmurs/extra sounds, No rub, No systolic murmur, No S3, No S4 Gastrointestinal: soft, nl liver, spleen, non-tender (Mildly tender in the left lower quadrant.), bowel sounds, distended, other (Hemorrhoids looks intact.); No ascites, No firm, No hepatomegaly, No mass, No rebound or guarding, No splenomegaly, No surgical scars, No tender Musculoskeletal: No nl extremities to inspection, No nl gait and stance, No joint tenderness, No muscle tone, No muscle weakness, No range of motion, No spine non-tender, No swelling, No other Extremities: normal pulses (Diminished.), pitting pedal edema (Trace.); No calf tenderness, No cyanosis, No clubbing, No edema, No palpable cord, No tenderness, No other Neurological: [employer] II-XII intact (Hearing impairment.), nl strength (Decreased.); No nl mental status, No nl speech, No confused, No DTR's symmetric, No focal weakness, No lethargic, No numbness, No reflexes, No unresponsive, No other Skin: nl turgor (Decreased.); No rash or lesions, No diaphoresis, No ecchymosis, No laceration, No puncture, No other Medications Medications Current Medications Aspirin (Halfprin) 81 mg DAILY PO ; Start 06/30/18 at 16:00; Status Hold Atorvastatin Calcium (Lipitor) 40 mg QHS PO Last administered on 06/30/18at 20:45; Admin Dose 40 MG; Start 06/30/18 at 21:00 Brimonidine Tartrate (Alphagan P 0.1%) 1 drop Q8 BOTH EYES Last administered on 07/01/18at 05:15; Admin Dose 1 DROP; Start 06/30/18 at 17:00 Calcium Carbonate (Oyster Shell Calcium) 1.25 gm BID PO Last administered on 06/30/18at 17:25; Admin Dose 1.25 GM; Start 06/30/18 at 17:00 Celecoxib (Celebrex) 200 mg DAILY PO Last administered on 06/30/18at 17:25; Admin Dose 200 MG; Start 06/30/18 at 17:00 Cyclobenzaprine HCl (Flexeril) 10 mg DAILY PRN PO MUSCLE SPASMS; Start 06/30/18 at 15:00 Dorzolamide HCl (Trusopt) 1 drop TID BOTH EYES Last administered on 06/30/18at 20:46; Admin Dose 1 DROP; Start 06/30/18 at 21:00 Ferrous Sulfate (Ferrous Sulfate (Ec)) 325 mg BID PO Last administered on 06/30/18at 17:24; Admin Dose 325 MG; Start 06/30/18 at 16:00 Levothyroxine Sodium (Synthroid) 50 mcg BEFORE BREAKFAST PO ; Start 07/01/18 at 07:00 Magnesium Oxide (Mag-Ox 400) 400 mg DAILY PO Last administered on 06/30/18at 17:24; Admin Dose 400 MG; Start 06/30/18 at 17:00 Meclizine HCl (Antivert) 25 mg DAILY PRN PO DIZZINESS; Start 06/30/18 at 15:00 Metformin HCl (Glucophage) 1,000 mg BID WITH MEALS PO Last administered on 06/30/18at 17:24; Admin Dose 1,000 MG; Start 06/30/18 at 18:00 Metoprolol Tartrate (Lopressor) 50 mg BID PO Last administered on 06/30/18at 17:25; Admin Dose 50 MG; Start 06/30/18 at 16:00 Pilocarpine HCl (Isopto Carpine 1% Oph) 1 drop QID BOTH EYES Last administered on 06/30/18at 20:45; Admin Dose 1 DROP; Start 06/30/18 at 17:00 Sodium Chloride (Chaitanya-128 Oph Oint) 1 applic QHS BOTH EYES Last administered on 06/30/18at 20:47; Admin Dose 1 APPLIC; Start 06/30/18 at 21:00 Latanoprost (Xalatan) 1 drop HS BOTH EYES ; Start 06/30/18 at 21:00 Albuterol (Proventil 0.083% (Neb)) 2.5 mg TID RESP THERAPY HHN Last a dministered on 07/01/18at 08:05; Admin Dose 2.5 MG; Start 06/30/18 at 17:00 Glucose (Glutose) 15 gm Q15M PRN PO DECREASED GLUCOSE; Start 06/30/18 at 16:00 Glucose (Glutose) 22.5 gm Q15M PRN PO DECREASED GLUCOSE; Start 06/30/18 at 16:00 Dextrose (D50w Syringe) 25 ml Q15M PRN IV DECREASED GLUCOSE; Start 06/30/18 at 16:00 Dextrose (D50w Syringe) 50 ml Q15M PRN IV DECREASED GLUCOSE; Start 06/30/18 at 16:00 Glucagon (Glucagen) 1 mg Q15M PRN IM DECREASED GLUCOSE; Start 06/30/18 at 16:00 Glucose (Glutose) 15 gm Q15M PRN BUCCAL DECREASED GLUCOSE; Start 06/30/18 at 16:00 Diagnostic Test (Pha) (Accu-Chek) 1 ea 02 XX ; Start 07/01/18 at 02:00 Influenza Virus Vaccine Quadrival (Fluzone) 0.5 ml ONCE ONCE IM* ; Start 07/01/18 at 10:00; Stop 07/01/18 at 10:01 Potassium Chloride 50 ml @ 50 mls/hr Q1H PRN IVPB POTASSIUM REPLACEMENT PROTOCOL; Start 06/30/18 at 23:00 Insulin Aspart (Novolog Insulin Pen) (Adult SC Insulin - Mild Algorithm)... Q4 SC ; Start 07/01/18 at 01:00 RAJAT BYRNE MD Jul 01, 2018 09:02
[2018-07-01] MEDS: DEXTROSE 5%-0.9% NACL 1,000 ML IV SCH (10:20)
--- NOTE | 2018-07-01 11:31 | PREAC ---
Date/Time of Note Date/Time of Note DATE: 07/01/18 TIME: 11:29 Anesthesia Eval and Record Evaluation Time Pre-Procedure Interview DATE: 07/01/18 TIME: 11:29 Age 77 Sex female NPO: 8 hrs Preoperative diagnosis RECTAL BLEEDING Planned procedure COLONOSCOPY Past Medical History Past Medical History: Includes Cardio: HTN, Arrythmia Endo: Diabetes Pulm: Asthma Heme: Anemia Surgery & Anesthesia Issues No known issue Meds Anticoagulation: No Beta Kate within 24 hr: No Reason Beta Kate not given: Pt. not on B-Kate Reported Medications Sodium Chloride* (Chaitanya-128*) 3.5 Gm Oint..gm., 1 APPLIC BOTH EYES QHS, TUB 06/30/18 Travoprost* (Travatan Z*) 2.5 Ml Drops, 1 DROP BOTH EYES HS, #1 BOTTLE 06/30/18 Pilocarpine Hcl* (Pilocarpine Hcl*) 1% - 15 Ml Drops, 1 DROP BOTH EYES QID, EA 06/30/18 Brimonidine Tartrate* (Alphagan P*) 0.1%-15 Ml Opht Drops, 1 DROP BOTH EYES Q8, #1 EA 06/30/18 Dorzolamide Hcl* (Dorzolamide Hcl*) 10 Ml Drops, 1 DROP BOTH EYES TID, #1 EA 06/30/18 Ezetimibe* (Zetia*) 10 Mg Tablet, 10 MG PO HS, TAB 06/30/18 Fenofibrate Nanocrystallized* (Fenofibrate*) 145 Mg Tablet, 145 MG PO DAILY, TAB 06/30/18 Cyclobenzaprine Hcl* (Cyclobenzaprine Hcl*) 10 Mg Tablet, 10 MG PO DAILY PRN for MUSCLE SPASMS, #60 TAB 06/30/18 Metoprolol Tartrate* (Lopressor*) 50 Mg Tab, 50 MG PO BID, #60 TAB 06/30/18 Magnesium Oxide* (Magnesium Oxide*) 400 Mg Tablet, 400 MG PO DAILY, TAB 06/30/18 Calcium Carbonate ([id number]-179) 500 Mg Tablet, 500 MG PO BID, TAB 06/30/18 Donepezil* (Donepezil*) 5 Mg Tablet, 5 MG PO DAILY, #30 TAB 06/30/18 Albuterol/Ipratropium* (Combivent Respimat*) 20-100 Mcg/Inh - 4 Gm Aer.w.adap, 1 PUFF INHALATION DAILY PRN for prn, #1 INHALER 06/30/18 Ferrous Sulfate* (Ferrous Sulfate*) 325 Mg Tabec, 325 MG PO BID, TAB 06/30/18 Ergocalciferol (Vitamin D2) (VITAMIN D2) 50,000 Unit Capsule, 41366 UNIT PO weekly, CAP 06/30/18 Celecoxib* (Celebrex*) 200 Mg Capsule, 200 MG PO DAILY, CAP 06/30/18 Meclizine Hcl* (Meclizine Hcl*) 25 Mg Tablet, 25 MG PO DAILY PRN for DIZZINESS, TAB 06/30/18 Atorvastatin* (Atorvastatin*) 40 Mg Tablet, 40 MG PO QHS, #30 TAB 06/30/18 Aspirin* (Aspirin* EC) 81 Mg Tablet.dr, 81 MG PO DAILY, TAB 06/30/18 Levothyroxine Sodium* (Levothyroxine Sodium*) 50 Mcg Tablet, 50 MCG PO BEFORE BREAKFAST, #30 TAB 06/30/18 Omeprazole* (Omeprazole*) 20 Mg Capsule.dr, 20 MG PO AC BREAKFAST, #30 CAP 06/30/18 Metformin* (Glucophage*) 1,000 Mg Tablet, 1000 MG PO BID, #60 TAB 06/30/18 Liraglutide (Victoza 3-Nico) 0.6 Mg/0.1 Ml Pen.injctr, 0.6 MG SQ DAILY, SYR 06/30/18 Discontinued Reported Medications Aspirin* (Aspirin* Chew) 81 Mg Tab.chew, 81 MG PO DAILY, TAB.CHEW 06/30/18 Levothyroxine Sodium* (Levothyroxine Sodium*) 50 Mcg Tablet, 50 MCG PO BEFORE BREAKFAST, #30 TAB 06/30/18 Levalbuterol* (Xopenex* HFA) 15 Gm Inha 05/21/10 Alendronate Sodium* (Fosamax*) 70 Mg Tablet 05/21/10 Bimatoprost (Lumigan) 2.5 Ml Drops 05/21/10 Dorzolamide-Timolol* (Cosopt*) 10 Ml Soln 05/21/10 Sodium Chloride* (Chaitanya-128*) 15 Ml Drops 05/21/10 Benazepril Hcl* (Benazepril Hcl*) 20 Mg Tablet 05/21/10 Pramipexole* (Mirapex*) 0.25 Mg Tablet 05/21/10 Amlodipine Besylate* (Amlodipine Besylate*) 10 Mg Tablet 05/21/10 Pioglitazone Hcl* (Actos*) 30 Mg Tablet 05/21/10 Pilocarpine Hcl* (Isopto Carpine*) 15 Ml Drops 05/21/10 Aspirin (Aspirin) 81 Mg Tablet 05/21/10 Fenofibrate, Micronized (Fenofibrate) 134 Mg Capsule 05/21/10 Fish Oil* (Fish Oil*) 1,000 Mg Cap 05/21/10 Furosemide* (Furosemide*) 40 Mg Tablet 05/21/10 Meclizine Hcl* (Meclizine Hcl*) 25 Mg Tablet 05/21/10 Metformin Hcl* (Metformin Hcl*) 850 Mg Tablet 05/21/10 Omeprazole* (Omeprazole*) 20 Mg Capsule. 05/21/10 Potassium Chloride (Potassium Chloride) 8 Meq Tablet.sa 05/21/10 Metoprolol Succinate (Toprol Xl) 25 Mg Tab.sr.24h 05/21/10 Calcium Carbonate/Vitamin D3 (Caltrate 600 W-D Tablet) 1 Tab Tablet 05/21/10 Atorvastatin (Lipitor) 40 Mg Tablet 05/21/10 Brimonidine Tartrate* (Alphagan P*) 10 Ml Drops 05/21/10 Levothyroxine Sodium (Levothroid) 75 Mcg Tablet 05/21/10 Hydrocodone Bit/Acetaminophen (Hydrocodone-Apap 5-500 Tab) 1 Tab Tablet 05/21/10 Naproxen* (Naproxen*) 500 Mg Tablet 05/21/10 Insulin Glargine,Hum.rec.anlog (Lantus) 100 U/Ml Cartridge 05/21/10 Insulin Glargine,Hum.rec.anlog (Lantus) 100 U/Ml Vial 05/21/10 Current Medications Aspirin (Halfprin) 81 mg DAILY PO ; Start 06/30/18 at 16:00; Status Hold Atorvastatin Calcium (Lipitor) 40 mg QHS PO Last administered on 06/30/18at 20:45; Admin Dose 40 MG; Start 06/30/18 at 21:00 Brimonidine Tartrate (Alphagan P 0.1%) 1 drop Q8 BOTH EYES Last administered on 07/01/18at 05:15; Admin Dose 1 DROP; Start 06/30/18 at 17:00 Calcium Carbonate (Oyster Shell Calcium) 1.25 gm BID PO Last administered on 06/30/18 17:25; Admin Dose 1.25 GM; Start 06/30/18 at 17:00 Celecoxib (Celebrex) 200 mg DAILY PO Last administered on 06/30/18 17:25; Admin Dose 200 MG; Start 06/30/18 at 17:00 Cyclobenzaprine HCl (Flexeril) 10 mg DAILY PRN PO MUSCLE SPASMS; Start 06/30/18 at 15:00 Dorzolamide HCl (Trusopt) 1 drop TID BOTH EYES Last administered on 07/01/18 08:59; Admin Dose 1 DROP; Start 06/30/18 at 21:00 Ferrous Sulfate (Ferrous Sulfate (Ec)) 325 mg BID PO Last administered on 06/30/18 17:24; Admin Dose 325 MG; Start 06/30/18 at 16:00 Levothyroxine Sodium (Synthroid) 50 mcg BEFORE BREAKFAST PO ; Start 07/01/18 at 07:00 Magnesium Oxide (Mag-Ox 400) 400 mg DAILY PO Last administered on 06/30/18 17:24; Admin Dose 400 MG; Start 06/30/18 at 17:00 Meclizine HCl (Antivert) 25 mg DAILY PRN PO DIZZINESS; Start 06/30/18 at 15:00 Metformin HCl (Glucophage) 1,000 mg BID WITH MEALS PO Last administered on 06/30/18at 17:24; Admin Dose 1,000 MG; Start 06/30/18 at 18:00 Metoprolol Tartrate (Lopressor) 50 mg BID PO Last administered on 06/30/18 17:25; Admin Dose 50 MG; Start 06/30/18 at 16:00 Pilocarpine HCl (Isopto Carpine 1% Oph) 1 drop QID BOTH EYES Last administered on 07/01/18 08:59; Admin Dose 1 DROP; Start 06/30/18 at 17:00 Sodium Chloride (Chaitanya-128 Oph Oint) 1 applic QHS BOTH EYES Last administered on 06/30/18at 20:47; Admin Dose 1 APPLIC; Start 06/30/18 at 21:00 Latanoprost (Xalatan) 1 drop HS BOTH EYES ; Start 06/30/18 at 21:00 Albuterol (Proventil 0.083% (Neb)) 2.5 mg TID RESP THERAPY HHN Last administered on 07/01/18at 08:05; Admin Dose 2.5 MG; Start 06/30/18 at 17:00 Glucose (Glutose) 15 gm Q15M PRN PO DECREASED GLUCOSE; Start 06/30/18 at 16:00 Glucose (Glutose) 22.5 gm Q15M PRN PO DECREASED GLUCOSE; Start 06/30/18 at 16:00 Dextrose (D50w Syringe) 25 ml Q15M PRN IV DECREASED GLUCOSE; Start 06/30/18 at 16:00 Dextrose (D50w Syringe) 50 ml Q15M PRN IV DECREASED GLUCOSE; Start 06/30/18 at 16:00 Glucagon (Glucagen) 1 mg Q15M PRN IM DECREASED GLUCOSE; Start 06/30/18 at 16:00 Glucose (Glutose) 15 gm Q15M PRN BUCCAL DECREASED GLUCOSE; Start 06/30/18 at 16:00 Diagnostic Test (Pha) (Accu-Chek) 1 ea 02 XX ; Start 07/01/18 at 02:00 Insulin Aspart (Novolog Insulin Pen) (Adult SC Insulin - Mild Algorithm)... Q4 SC ; Start 07/01/18 at 01:00 Dextrose/Sodium Chloride 1,000 ml @ 50 mls/hr Q20H IV Last administered on 07/01/18at 10:20; Admin Dose 50 MLS/HR; Start 07/01/18 at 09:30 Meds reviewed: Yes Allergies Coded Allergies: No Known Allergy (Verified Allergy, Mild, 05/21/10) Allergies Reviewed: Yes Labs/Studies Labs Reviewed: Reviewed by anesthesiologist Result Diagram: 06/30/18 1246 07/01/18 0550 Laboratory Tests 06/30/18 12:46 07/01/18 05:50 Blood Bank Test 06/30/18 12:50 Antibody Screen NEGATIVE Blood Type A NEGATIVE test: N/A Pre-procedure Exam Last vitals Vital Signs Date Temp Pulse Resp B/P (MAP) Pulse Ox O2 O2 Flow FiO2 Time Delivery Rate 07/01/18 78 17 99 21 08:06 07/01/18 97.9 135/65 08:00 (88) 07/01/18 Room Air 02:04 Airway: Adequate mouth opening, Adequate thyromental dist Mallampati: Mallampati II Teeth: Normal Lung: Normal Heart: Normal ASA Physical Status ASA physical status: 3 Emergency: None Planned Anesthetic General/MAC: MAC Planned Pain Management Parenteral pain med Pre-operative Attestations Prior to commencing anesthesia and surgery, the patient was re-evaluated, there was verification of: *The patient's identity *The results of appropriate recent lab work and preoperative vital signs *The above evaluation not changing prior to induction *Anesthetic plan, risk benefits, alternative and complications discussed with patient/family; questions answered; patient/family understands, accepts and wishes to proceed. POLI ANDERSON Jul 01, 2018 11:31
[2018-07-01] MEDS ORDERED: PROPOFOL 60 ML ONE (11:33)
[2018-07-01] MEDS ORDERED: LIDOCAINE 2% (SDV) 5 ML INJ ONE (11:33)
[2018-07-01] MEDS ORDERED: ONDANSETRON 4 MG INJ IV PRN (12:00)
[2018-07-01] MEDS ORDERED: LABETALOL HCL 20MG INJ IV PRN (12:00)
[2018-07-01] MEDS ORDERED: FENTAnyl 50 MCG/ML VIAL IV PRN ×2 (12:00)
[2018-07-01] MEDS ORDERED: EPHEDrine SULFATE 50 MG/5 ML SYG IV PRN (12:00)
--- NOTE | 2018-07-01 12:05 | CONS ---
Assessment/Plan Assessment/Plan Hospital Course rectal bleeding. History of previous rectal bleeding presence of hemorrhoids and diverticular disease. Anemia of chronic disease with decline of H&H w-up in progress monitor h/h transfuse as needed GI and surg eval- for colonoscopy today History of hypertension now normotensive Status post pacemaker implantation due to sick sinus syndrome and bradycardia Severe osteoporosis with a history of vertebral collapse with radiculopathy History of cholelithiasis Diabetes type 2 improved after weight loss Bronchiectasis with history of recurrent bleeding hemoptysis. No significant bleeding the last more than 2 years; frequent episodes of pneumonia and on antibiotics multiple times. 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 Hypertension with CHF out of control Urinary incontinence with recurrent UTIs and history of cystocele Hearing impairment history of passing stone nephrolithiasis Recurrent UTIs Seasonal allergies incomplete data Result Diagram: 06/30/18 1246 07/01/18 0550 Results 24hrs Laboratory Tests Test 06/30/18 12:46 06/30/18 17:19 07/01/18 01:05 07/01/18 05:16 White Blood Count 6.1 Red Blood Count 4.80 Hemoglobin 13.7 Hematocrit 41.5 Mean Corpuscular 86.5 Volume Mean Corpuscular 28.5 L Hemoglobin Mean Corpuscular 33.0 Hemoglobin Concent Red Cell 13.5 Distribution Width Platelet Count 193 Mean Platelet Volume 9.9 Immature 1.200 H Granulocytes % Neutrophils % 59.4 Lymphocytes % 28.3 Monocytes % 7.8 Eosinophils % 2.5 Basophils % 0.8 Nucleated Red Blood 0.0 Cells % Immature 0.070 H Granulocytes # Neutrophils # 3.6 Lymphocytes # 1.7 Monocytes # 0.5 Eosinophils # 0.2 Basophils # 0.1 Nucleated Red Blood 0.0 Cells # Prothrombin Time 13.1 Prothrombin Time 1.0 Ratio INR International 0.98 Normalized Ratio Activated 29.6 Partial Thromboplast Time Urine Color STRAW Urine Clarity CLEAR Urine pH 6.0 Urine Specific 1.009 [place] Urine Ketones NEGATIVE Urine Nitrite NEGATIVE Urine Bilirubin NEGATIVE Urine Urobilinogen NEGATIVE Urine Leukocyte NEGATIVE Esterase Urine Hemoglobin NEGATIVE Urine Glucose 1+ H Urine Total Protein NEGATIVE Sodium Level 136 Potassium Level 4.0 Chloride Level 98 Carbon Dioxide Level 28 Anion Gap 10 Blood Urea Nitrogen 17 Creatinine 0.69 Est Glomerular Filtrat Rate mL/min Glucose Level 138 Calcium Level 10.0 Total Bilirubin 0.5 Direct Bilirubin 0.00 Indirect Bilirubin 0.5 Aspartate Amino 25 Transf (AST/SGOT) Alanine 24 Aminotransferase (AL T/SGPT) Alkaline Phosphatase 57 Troponin I < 0.012 Total Protein 8.1 Albumin 4.3 Globulin 3.80 H Albumin/Globulin 1.13 Ratio Lipase 118 Bedside Glucose 95 115 134 Test 07/01/18 05:50 07/01/18 08:54 Erythrocyte 22 Sedimentation Rate Absolute 0.116 H Reticulocyte Count Percent Reticulocyte 2.5 H Count Potassium Level 3.6 Uric Acid 4.5 Iron Level 79 Total Iron Binding 368 Capacity Percent Iron 21 L Saturation Ferritin 48.9 Lactate 347 Dehydrogenase Carcinoembryonic 0.9 Antigen Vitamin B12 Level 352 Folate 11.5 Thyroid Stimulating 2.710 Hormone (TSH) Bedside Glucose 128 Consultation Date/Type/Reason Admit Date/Time Jun 30, 2018 at 15:17 Initial Consult Date 06/30/18 Type of Consult hemeonc Requesting Provider: RAJAT BYRNE MD 24 HR Interval Summary Free Text/Dictation all noted for endoscopy today Exam/Review of Systems Vital Signs Vitals Vital Signs Date Temp Pulse Resp B/P (MAP) Pulse Ox O2 O2 Flow FiO2 Time Delivery Rate 07/01/18 97.8 88 18 151/70 96 Room Air 11:25 (97) 07/01/18 21 08:06 Exam GENERAL: Well-developed, well-nourished, well-hydrated, in no apparent distress, looks nontoxic in appearance HEENT: Moist mucous membranes, pink conjunctiva, no cervical spine tenderness or step-off deformities, no goiter, no jaundice or icterus, extraocular movements intact without pain. No submandibular induration, and no pharyngeal erythema NEURO: Alert and oriented 3, cranial nerves II through XII intact bilaterally, pupils equal round reactive to light, no focal deficits or facial asymmetry, sensation intact distally Strength 5/5 in upper and lower extremities bilaterally CARDIAC: Regular rate and rhythm, no murmurs rubs or gallops LUNGS: Clear bilaterally no wheezing crackles or stridor ABDOMEN: Soft nontender, no guarding, no rigidity, no rebound, no psoas sign no obturator sign. SKIN: Warm and dry to touch, no abrasions, contusions, or hematomas, no lacerations, no ecchymosis, no target lesions, and without ulcers EXTREMITIES: No clubbing cyanosis or edema, calves are bilaterally symmetrical, no Homans sign, no popliteal cord sign. Distal pulses equal and bilateral PSYCH: Normal affect without agitation or irritability Medications Medications Current Medications Aspirin (Halfprin) 81 mg DAILY PO ; Start 06/30/18 at 16:00; Status Hold Atorvastatin Calcium (Lipitor) 40 mg QHS PO Last administered on 06/30/18at 20:45; Admin Dose 40 MG; Start 06/30/18 at 21:00 Brimonidine Tartrate (Alphagan P 0.1%) 1 drop Q8 BOTH EYES Last administered on 07/01/18at 05:15; Admin Dose 1 DROP; Start 06/30/18 at 17:00 Calcium Carbonate (Oyster Shell Calcium) 1.25 gm BID PO Last administered on 06/30/18at 17:25; Admin Dose 1.25 GM; Start 06/30/18 at 17:00 Celecoxib (Celebrex) 200 mg DAILY PO Last administered on 06/30/18at 17:25; Admin Dose 200 MG; Start 06/30/18 at 17:00 Cyclobenzaprine HCl (Flexeril) 10 mg DAILY PRN PO MUSCLE SPASMS; Start 06/30/18 at 15:00 Dorzolamide HCl (Trusopt) 1 drop TID BOTH EYES Last administered on 07/01/18at 08:59; Admin Dose 1 DROP; Start 06/30/18 at 21:00 Ferrous Sulfate (Ferrous Sulfate (Ec)) 325 mg BID PO Last administered on 06/30/18at 17:24; Admin Dose 325 MG; Start 06/30/18 at 16:00 Levothyroxine Sodium (Synthroid) 50 mcg BEFORE BREAKFAST PO ; Start 07/01/18 at 07:00 Magnesium Oxide (Mag-Ox 400) 400 mg DAILY PO Last administered on 06/30/18at 17:24; Admin Dose 400 MG; Start 06/30/18 at 17:00 Meclizine HCl (Antivert) 25 mg DAILY PRN PO DIZZINESS; Start 06/30/18 at 15:00 Metformin HCl (Glucophage) 1,000 mg BID WITH MEALS PO Last administered on 06/30/18at 17:24; Admin Dose 1,000 MG; Start 06/30/18 at 18:00 Metoprolol Tartrate (Lopressor) 50 mg BID PO Last administered on 06/30/18at 17:25; Admin Dose 50 MG; Start 06/30/18 at 16:00 Pilocarpine HCl (Isopto Carpine 1% Oph) 1 drop QID BOTH EYES Last administered on 07/01/18at 08:59; Admin Dose 1 DROP; Start 06/30/18 at 17:00 Sodium Chloride (Chaitanya-128 Oph Oint) 1 applic QHS BOTH EYES Last administered on 06/30/18at 20:47; Admin Dose 1 APPLIC; Start 06/30/18 at 21:00 Latanoprost (Xalatan) 1 drop HS BOTH EYES ; Start 06/30/18 at 21:00 Albuterol (Proventil 0.083% (Neb)) 2.5 mg TID RESP THERAPY HHN Last administered on 07/01/18at 08:05; Admin Dose 2.5 MG; Start 06/30/18 at 17:00 Glucose (Glutose) 15 gm Q15M PRN PO DECREASED GLUCOSE; Start 06/30/18 at 16:00 Glucose (Glutose) 22.5 gm Q15M PRN PO DECREASED GLUCOSE; Start 06/30/18 at 16:00 Dextrose (D50w Syringe) 25 ml Q15M PRN IV DECREASED GLUCOSE; Start 06/30/18 at 16:00 Dextrose (D50w Syringe) 50 ml Q15M PRN IV DECREASED GLUCOSE; Start 06/30/18 at 16:00 Glucagon (Glucagen) 1 mg Q15M PRN IM DECREASED GLUCOSE; Start 06/30/18 at 16:00 Glucose (Glutose) 15 gm Q15M PRN BUCCAL DECREASED GLUCOSE; Start 06/30/18 at 16:00 Diagnostic Test (Pha) (Accu-Chek) 1 ea 02 XX ; Start 07/01/18 at 02:00 Insulin Aspart (Novolog Insulin Pen) (Adult SC Insulin - Mild Algorithm)... Q4 SC ; Start 07/01/18 at 01:00 Dextrose/Sodium Chloride 1,000 ml @ 50 mls/hr Q20H IV Last administered on 07/01/18at 10:20; Admin Dose 50 MLS/HR; Start 07/01/18 at 09:30 Fentanyl (Sublimaze) 25 mcg PACU ORDER PRN IV MILD PAIN 1-3; Start 07/01/18 at 12:00; Status UNV Fentanyl (Sublimaze) 50 mcg PACU ORDER PRN IV MOD PAIN 4-6; Start 07/01/18 at 12:00; Status UNV Ondansetron HCl (Zofran Inj) 4 mg PACU ORDER PRN IV NAUSEA/VOMITING; Start 07/01/18 at 12:00; Status UNV Labetalol HCl (Labetalol) 5 mg PACU ORDER PRN IV HIGH BLOOD PRESSURE; Start 07/01/18 at 12:00; Status UNV Ephedrine Sulfate 5 mg PACU ORDER PRN IV BLOOD PRESSURE SUPPORT; Start 07/01/18 at 12:00; Status UNV Date/Time of Note Date/Time of Note DATE: 07/01/18 TIME: 12:03 DOMINGO FOURNIER MD Jul 01, 2018 12:05
--- NOTE | 2018-07-01 12:11 | PAC ---
Date/Time of Note Date/Time of Note DATE: 07/01/18 TIME: 12:11 Post-Anesthesia Notes Post-Anesthesia Note Last documented vital signs Vital Signs Date Temp Pulse Resp B/P (MAP) Pulse Ox O2 O2 Flow FiO2 Time Delivery Rate 07/01/18 97.8 88 18 151/70 96 Room Air 1211 (97) 07/01/18 21 08:06 Activity: WNL Respiratory function: WNL Cardiovascular function: WNL Mental status: Baseline Pain reasonably controlled: Yes Hydration appropriate: Yes Nausea/Vomiting absent: Yes POLI ANDERSON Jul 01, 2018 12:11
--- NOTE | 2018-07-01 12:45 | NUR ---
PACU TRANSFERRED TO [facility] [id number] IN STABLE COND. FROM GI LAB, SP COLONOSCOPY VSS. PT AWAKE AND ALERT, PAIN 0/10 PER PT. REPORT GIVEN TO RYNE YEN. MS Addendum: 07/01/18 at 1257 by LIZABETH KWONG RN Amended: Links added.
--- NOTE | 2018-07-01 13:17 | CONS ---
Assessment/Plan Assessment/Plan Hospital Course (Demo Recall) HTN: BP up to 190 on admission. Now normalized even without home med Rectal bleeding: s/p colonoscopy, results pending h/o PPM: less likely ICD but no CXR to confirm ?Subclavian stenosis: per pt she had a graft placed for occlusion -restart home nifedipine 60mg -hold ASA -f/u colo results -check CXR to determine PPM vs ICD Consultation Date/Type/Reason Admit Date/Time Jun 30, 2018 at 15:17 Date of Consultation: Jul 01, 2018 Type of Consult Cardiology Reason for Consultation h/o PPM, HTN Requesting Provider: RAJAT BYRNE MD Date/Time of Note DATE: 07/01/18 TIME: 13:17 Hx of Present Illness 77 yo F with a h/o PPM vs less likely ICD, ?subclavian venous stenosis s/p graft per pt, HTN, hemorrhoids, who presented with rectal bleeding. She was also noted to have elevated BP to 190. She had colonoscopy today with results pending. She denies chest pain or SOB. No current complaints. No known CAD or cardiomyopathy per pt. per hPI Past Medical History per HPI Home Meds Reported Medications Sodium Chloride* (Chaitanya-128*) 3.5 Gm Oint..gm., 1 APPLIC BOTH EYES QHS, TUB 06/30/18 Travoprost* (Travatan Z*) 2.5 Ml Drops, 1 DROP BOTH EYES HS, #1 BOTTLE 06/30/18 Pilocarpine Hcl* (Pilocarpine Hcl*) 1% - 15 Ml Drops, 1 DROP BOTH EYES QID, EA 06/30/18 Brimonidine Tartrate* (Alphagan P*) 0.1%-15 Ml Opht Drops, 1 DROP BOTH EYES Q8, #1 EA 06/30/18 Dorzolamide Hcl* (Dorzolamide Hcl*) 10 Ml Drops, 1 DROP BOTH EYES TID, #1 EA 06/30/18 Ezetimibe* (Zetia*) 10 Mg Tablet, 10 MG PO HS, TAB 06/30/18 Fenofibrate Nanocrystallized* (Fenofibrate*) 145 Mg Tablet, 145 MG PO DAILY, TAB 06/30/18 Cyclobenzaprine Hcl* (Cyclobenzaprine Hcl*) 10 Mg Tablet, 10 MG PO DAILY PRN for MUSCLE SPASMS, #60 TAB 06/30/18 Metoprolol Tartrate* (Lopressor*) 50 Mg Tab, 50 MG PO BID, #60 TAB 06/30/18 Magnesium Oxide* (Magnesium Oxide*) 400 Mg Tablet, 400 MG PO DAILY, TAB 06/30/18 Calcium Carbonate ([id number]) 500 Mg Tablet, 500 MG PO BID, TAB 06/30/18 Donepezil* (Donepezil*) 5 Mg Tablet, 5 MG PO DAILY, #30 TAB 06/30/18 Albuterol/Ipratropium* (Combivent Respimat*) 20-100 Mcg/Inh - 4 Gm Aer.w.adap, 1 PUFF INHALATION DAILY PRN for prn, #1 INHALER 06/30/18 Ferrous Sulfate* (Ferrous Sulfate*) 325 Mg Tabec, 325 MG PO BID, TAB 06/30/18 Ergocalciferol (Vitamin D2) (VITAMIN D2) 50,000 Unit Capsule, 91681 UNIT PO weekly, CAP 06/30/18 Celecoxib* (Celebrex*) 200 Mg Capsule, 200 MG PO DAILY, CAP 06/30/18 Meclizine Hcl* (Meclizine Hcl*) 25 Mg Tablet, 25 MG PO DAILY PRN for DIZZINESS, TAB 06/30/18 Atorvastatin* (Atorvastatin*) 40 Mg Tablet, 40 MG PO QHS, #30 TAB 06/30/18 Aspirin* (Aspirin* EC) 81 Mg Tablet.dr, 81 MG PO DAILY, TAB 06/30/18 Levothyroxine Sodium* (Levothyroxine Sodium*) 50 Mcg Tablet, 50 MCG PO BEFORE BREAKFAST, #30 TAB 06/30/18 Omeprazole* (Omeprazole*) 20 Mg Capsule.dr, 20 MG PO AC BREAKFAST, #30 CAP 06/30/18 Metformin* (Glucophage*) 1,000 Mg Tablet, 1000 MG PO BID, #60 TAB 06/30/18 Liraglutide (Victoza 3-Nico) 0.6 Mg/0.1 Ml Pen.injctr, 0.6 MG SQ DAILY, SYR 06/30/18 Discontinued Reported Medications Aspirin* (Aspirin* Chew) 81 Mg Tab.chew, 81 MG PO DAILY, TAB.CHEW 06/30/18 Levothyroxine Sodium* (Levothyroxine Sodium*) 50 Mcg Tablet, 50 MCG PO BEFORE BREAKFAST, #30 TAB 06/30/18 Levalbuterol* (Xopenex* HFA) 15 Gm Inha 05/21/10 Alendronate Sodium* (Fosamax*) 70 Mg Tablet 05/21/10 Bimatoprost (Lumigan) 2.5 Ml Drops 05/21/10 Dorzolamide-Timolol* (Cosopt*) 10 Ml Soln 05/21/10 Sodium Chloride* (Chaitanya-128*) 15 Ml Drops 05/21/10 Benazepril Hcl* (Benazepril Hcl*) 20 Mg Tablet 05/21/10 Pramipexole* (Mirapex*) 0.25 Mg Tablet 05/21/10 Amlodipine Besylate* (Amlodipine Besylate*) 10 Mg Tablet 05/21/10 Pioglitazone Hcl* (Actos*) 30 Mg Tablet 05/21/10 Pilocarpine Hcl* (Isopto Carpine*) 15 Ml Drops 05/21/10 Aspirin (Aspirin) 81 Mg Tablet 05/21/10 Fenofibrate, Micronized (Fenofibrate) 134 Mg Capsule 05/21/10 Fish Oil* (Fish Oil*) 1,000 Mg Cap 05/21/10 Furosemide* (Furosemide*) 40 Mg Tablet 05/21/10 Meclizine Hcl* (Meclizine Hcl*) 25 Mg Tablet 05/21/10 Metformin Hcl* (Metformin Hcl*) 850 Mg Tablet 05/21/10 Omeprazole* (Omeprazole*) 20 Mg Capsule.dr 05/21/10 Potassium Chloride (Potassium Chloride) 8 Meq Tablet.sa 05/21/10 Metoprolol Succinate (Toprol Xl) 25 Mg Tab.sr.24h 05/21/10 Calcium Carbonate/Vitamin D3 (Caltrate 600 W-D Tablet) 1 Tab Tablet 05/21/10 Atorvastatin (Lipitor) 40 Mg Tablet 05/21/10 Brimonidine Tartrate* (Alphagan P*) 10 Ml Drops 05/21/10 Levothyroxine Sodium (Levothroid) 75 Mcg Tablet 05/21/10 Hydrocodone Bit/Acetaminophen (Hydrocodone-Apap 5-500 Tab) 1 Tab Tablet 05/21/10 Naproxen* (Naproxen*) 500 Mg Tablet 05/21/10 Insulin Glargine,Hum.rec.anlog (Lantus) 100 U/Ml Cartridge 05/21/10 Insulin Glargine,Hum.rec.anlog (Lantus) 100 U/Ml Vial 05/21/10 Medications Current Medications Aspirin (Halfprin) 81 mg DAILY PO ; Start 06/30/18 at 16:00; Status Hold Atorvastatin Calcium (Lipitor) 40 mg QHS PO Last administered on 06/30/18at 20:45; Admin Dose 40 MG; Start 06/30/18 at 21:00 Brimonidine Tartrate (Alphagan P 0.1%) 1 drop Q8 BOTH EYES Last administered on 07/01/18at 05:15; Admin Dose 1 DROP; Start 06/30/18 at 17:00 Calcium Carbonate (Oyster Shell Calcium) 1.25 gm BID PO Last administered on 06/30/18at 17:25; Admin Dose 1.25 GM; Start 06/30/18 at 17:00 Celecoxib (Celebrex) 200 mg DAILY PO Last administered on 06/30/18at 17:25; Admin Dose 200 MG; Start 06/30/18 at 17:00 Cyclobenzaprine HCl (Flexeril) 10 mg DAILY PRN PO MUSCLE SPASMS; Start 06/30/18 at 15:00 Dorzolamide HCl (Trusopt) 1 drop TID BOTH EYES Last administered on 07/01/18at 08:59; Admin Dose 1 DROP; Start 06/30/18 at 21:00 Ferrous Sulfate (Ferrous Sulfate (Ec)) 325 mg BID PO Last administered on 06/30/18at 17:24; Admin Dose 325 MG; Start 06/30/18 at 16:00 Levothyroxine Sodium (Synthroid) 50 mcg BEFORE BREAKFAST PO ; Start 07/01/18 at 07:00 Magnesium Oxide (Mag-Ox 400) 400 mg DAILY PO Last administered on 06/30/18at 17:24; Admin Dose 400 MG; Start 06/30/18 at 17:00 Meclizine HCl (Antivert) 25 mg DAILY PRN PO DIZZINESS; Start 06/30/18 at 15:00 Metformin HCl (Glucophage) 1,000 mg BID WITH MEALS PO Last administered on 06/30/18at 17:24; Admin Dose 1,000 MG; Start 06/30/18 at 18:00 Metoprolol Tartrate (Lopressor) 50 mg BID PO Last administered on 06/30/18at 17:25; Admin Dose 50 MG; Start 06/30/18 at 16:00 Pilocarpine HCl (Isopto Carpine 1% Oph) 1 drop QID BOTH EYES Last administered on 07/01/18at 08:59; Admin Dose 1 DROP; Start 06/30/18 at 17:00 Sodium Chloride (Chaitanya-128 Oph Oint) 1 applic QHS BOTH EYES Last administered on 06/30/18at 20:47; Admin Dose 1 APPLIC; Start 06/30/18 at 21:00 Latanoprost (Xalatan) 1 drop HS BOTH EYES ; Start 06/30/18 at 21:00 Albuterol (Proventil 0.083% (Neb)) 2.5 mg TID RESP THERAPY HHN Last administered on 07/01/18at 13:12; Admin Dose 2.5 MG; Start 06/30/18 at 17:00 Glucose (Glutose) 15 gm Q15M PRN PO DECREASED GLUCOSE; Start 06/30/18 at 16:00 Glucose (Glutose) 22.5 gm Q15M PRN PO DECREASED GLUCOSE; Start 06/30/18 at 16:00 Dextrose (D50w Syringe) 25 ml Q15M PRN IV DECREASED GLUCOSE; Start 06/30/18 at 16:00 Dextrose (D50w Syringe) 50 ml Q15M PRN IV DECREASED GLUCOSE; Start 06/30/18 at 16:00 Glucagon (Glucagen) 1 mg Q15M PRN IM DECREASED GLUCOSE; Start 06/30/18 at 16:00 Glucose (Glutose) 15 gm Q15M PRN BUCCAL DECREASED GLUCOSE; Start 06/30/18 at 16:00 Diagnostic Test (Pha) (Accu-Chek) 1 ea 02 XX ; Start 07/01/18 at 02:00 Insulin Aspart (Novolog Insulin Pen) (Adult SC Insulin - Mild Algorithm)... Q4 SC ; Start 07/01/18 at 01:00 Dextrose/Sodium Chloride 1,000 ml @ 50 mls/hr Q20H IV Last administered on 07/01/18at 10:20; Admin Dose 50 MLS/HR; Start 07/01/18 at 09:30 Fentanyl (Sublimaze) 25 mcg PACU ORDER PRN IV MILD PAIN 1-3; Start 07/01/18 at 12:00; Stop 07/01/18 at 16:00 Fentanyl (Sublimaze) 50 mcg PACU ORDER PRN IV MOD PAIN 4-6; Start 07/01/18 at 12:00; Stop 07/01/18 at 16:00 Ondansetron HCl (Zofran Inj) 4 mg PACU ORDER PRN IV NAUSEA/VOMITING; Start 07/01/18 at 12:00; Stop 07/01/18 at 16:00 Labetalol HCl (Labetalol) 5 mg PACU ORDER PRN IV HIGH BLOOD PRESSURE; Start 07/01/18 at 12:00; Stop 07/01/18 at 16:00 Ephedrine Sulfate 5 mg PACU ORDER PRN IV BLOOD PRESSURE SUPPORT; Start 07/01/18 at 12:00; Stop 07/01/18 at 16:00 Allergies: Coded Allergies: No Known Allergy (Verified Allergy, Mild, 05/21/10) Past Surgical History Past Surgical Hx: angioplasty Social History Alcohol Use: none Smoking Status: Never smoker Drug Use: none Exam/Review of Systems Vital Signs Vitals Vital Signs Date Temp Pulse Resp B/P (MAP) Pulse Ox O2 O2 Flow FiO2 Time Delivery Rate 07/01/18 82 18 132/78 98 Nasal 2.0 12:37 (96) Cannula 07/01/18 98.2 12:06 07/01/18 21 08:06 Exam Constitutional: alert, oriented Psych: no complaints, nl mood/affect Head: normocephalic, atraumatic Neck: supple; No jvd Respiratory: clear to auscultation; No crackles/rales Cardiovascular: regular rate and rhythm; No edema, No systolic murmur Gastrointestinal: soft, non-tender; No distended Musculoskeletal: nl extremities to inspection Neurological: nl mental status, nl speech Labs Result Diagram: 06/30/18 1246 07/01/18 0550 Results 24hrs Laboratory Tests Test 06/30/18 17:19 07/01/18 01:05 07/01/18 05:16 07/01/18 05:50 Bedside Glucose 95 115 134 Erythrocyte 22 Sedimentation Rate Absolute 0.116 H Reticulocyte Count Percent Reticulocyte 2.5 H Count Potassium Level 3.6 Uric Acid 4.5 Iron Level 79 Total Iron Binding 368 Capacity Percent Iron 21 L Saturation Ferritin 48.9 Lactate 347 Dehydrogenase Carcinoembryonic 0.9 Antigen Vitamin B12 Level 352 Folate 11.5 Thyroid Stimulating 2.710 Hormone (TSH) Test 07/01/18 08:54 07/01/18 12:56 Bedside Glucose 128 100 ALTA RICHARDS Jul 01, 2018 13:17
--- NOTE | 2018-07-01 14:59 | PN ---
DATE: 07/01/2018 SUBJECTIVE: No specific complaint. Apparently today, the patient had colonoscopy done by Dr. Chowdhury, but unfortunately report of procedure by this time which is 2:43 p.m. is not in the computer, so I do not know exactly what has been going on. OBJECTIVE: GENERAL: Awake, alert, oriented. VITAL SIGNS: Temperature maximum 98.2, heart rate 84, respiration 18, blood pressure 152/78, saturation 98% on room air. HEART: Regular. LUNGS: Clear. ABDOMEN: Soft. No guarding. No rigidity. Bowel sounds are present. EXTREMITIES: Legs have no calf tenderness. LABORATORY DATA: The retic count is slightly elevated at 2.5 today. Chemistry: TIBC is 368, iron is 79, saturation is 21, which is low. ASSESSMENT: A 77-year-old female with history of 3 days' rectal bleeding, fresh blood mixed with the stool per the patient. The patient has history of hemorrhoidectomy many years ago and on physical exam yesterday as was mentioned, there is some tightness of the sphincter and some irregularity possibly due to previous hemorrhoidectomy. We are awaiting the official result of the colonoscopy to make sure that the patient does not have any tumor or any other pathology in the colon or rectum system and then make further decision. PLAN: The patient can be started on full liquid diet today and we will make a decision for advancement of diet tomorrow. Dictated By: KEATON DELEON MD PS/NTS Conf#: [id number] DID#: [id number] CC: TAYLOR CHOWDHURY MD; RAJAT BYRNE MD;*EndCC* MTDD
[2018-07-01] MEDS: INSULIN ASPART [NOVOLOG] 3 ML PEN SC SCH ×2 (17:42→20:10)
--- NOTE | 2018-07-01 18:05 | NUR ---
END OF SHIFT NOTES: PT STABLE, ALERT & ORIENTED X4. NO DISTRESS NOTED. ACCUCHECKS DONE. WARM SALINE ENEMA DONE IN THE MORNING FOR BOWEL PREP. COLONOSCOPY DONE TODAY. ADVANCED DIET TO FULL LIQUID. MEDICATED X1 FOR DIZZINESS AFTER THE PROCEDURE. PT VERBALIZED RELIEF. INSTRUCTED PT TO CALL FOR ASSISTANCE. VS WNL.HOURLY ROUNDING. CALL LIGHT WITHIN REACH.ALL NEEDS MET. NO NEW COMPLAINTS
[2018-07-01] MEDS: ATORVASTATIN 40 MG TAB PO SCH (20:11)
[2018-07-01] MEDS: SODIUM CHLORIDE 5% 2.5 GM OPH OINT BOTH EYES SCH (20:13)
[2018-07-01] MEDS: LATANOPROST 0.005% 2.5 ML OPH BOTH EYES SCH (20:15)
[2018-07-02] MEDS: ACCU-CHEK XX SCH (02:00)
[2018-07-02 02:35] VITALS: BP 143/70; PULSE 84; RESP 18
[2018-07-02] MEDS: DEXTROSE 5%-0.9% NACL 1,000 ML IV SCH (06:14)
[2018-07-02] MEDS: BRIMONIDINE 0.1% 5 ML OPH BOTH EYES SCH (06:16)
--- NOTE | 2018-07-02 06:23 | NUR ---
shift summary: S/P colostomy. Patient is alert oriented and ambulatory. She denies pain. VSS. Accucheck last night was 144, no insulin coverage. All due medications given. POC explained. continue to monitor
[2018-07-02 07:43] VITALS: BP 146/71; PULSE 89; RESP 18
[2018-07-02] MEDS: LEVOTHYROXINE 50 MCG TAB PO SCH (07:50)
[2018-07-02] MEDS: FERROUS SULFATE (EC) 325 MG TAB PO SCH (08:24)
[2018-07-02] MEDS: CALCIUM CARBONATE 1.25 GM TAB PO SCH (08:24)
[2018-07-02] MEDS: MAGNESIUM OXIDE 400 MG TAB PO SCH (08:25)
[2018-07-02] MEDS: CELECOXIB 200 MG CAP PO SCH (08:25)
[2018-07-02] MEDS: metFORMIN 500 MG TAB PO SCH (08:25)
[2018-07-02] MEDS: METOPROLOL 50 MG TAB PO SCH (08:25)
[2018-07-02] MEDS: INSULIN ASPART [NOVOLOG] 3 ML PEN SC SCH ×2 (08:28→12:31)
[2018-07-02] MEDS: DORZOLAMIDE 2% 10 ML OPH BOTH EYES SCH ×2 (08:32→12:55)
[2018-07-02] MEDS: PILOCARPINE 1% BOTH EYES SCH ×2 (08:32→12:54)
[2018-07-02] MEDS: ALBUTEROL 0.083% (NEB) 2.5 MG/3 ML AMP HHN SCH (08:48)
[2018-07-02] MEDS ORDERED: NIFEdipine (XL) 60 MG TAB PO SCH (09:00)
--- NOTE | 2018-07-02 10:00 | NUR ---
Shift Report: Pt is awake,alert and oriented. IV infusing to RAC. Pt had BM with blood tinged. Pt is aware to inform RN with BM result. Ambulate with assistance. Pt will be transferred to for continuity of care. Eyedrops and insulin pen sent with pt. Clothes and shoes with pt.
[2018-07-02 10:19] VITALS: BP 163/73; PULSE 85; RESP 20
--- NOTE | 2018-07-02 10:35 | NUR ---
NRSG NOTE Pt received to room 428. A/OX4. Skin check done. Skin intact. Krystle pad in place with pt stating she had rectal spotting this morning with BM. No complaints of pain or discomfort now. Insulin pen and 3 ophthalmic medications brought up with pt. Full liquid diet provided to pt. Oriented pt to call light and to bed alarm. Bed in lowest position, bed alarm on and call light within reach.
--- NOTE | 2018-07-02 11:16 | PDOCDIS ---
Discharge Instructions CONDITION [id number] Patient Condition: [id number] Guarded HOME CARE INSTRUCTIONS: [id number] Diet Instructions: [id number] Reduced Sodium ACTIVITY: [id number] Activity Restrictions: [id number] Slowly Increase Activity [id number] Bathing Restrictions: Otype6c Shower FOLLOW UP/APPOINTMENTS Follow-up Plan To see Dr. Byrne in 5 days with repeat of CBC BMP. REFERRALS Other Referrals Dr. Zaman in 1 week. OTHER ORDERS: Other Orders: Continue clear liquid diet. Back to ER or to the office if bleeding does not stop. SCHOOL/WORK RELEASE May return to School/Work on: Jul 04, 2018 May return to School/Work with: . None. RAJAT BYRNE MD Jul 02, 2018 11:16
--- NOTE | 2018-07-02 11:21 | DS ---
Date/Time of Note Date/Time of Note DATE: 07/02/18 TIME: 11:17 Discharge Summary Admission/Discharge Info Admit Date/Time Jun 30, 2018 at 15:17 Discharge Date/Time July 02, 2018 12 00. Hx of Present Illness This is a 77 years old white female with history of having hemorrhoidal disease and previous history of rectal bleeding now is having a new onset of rectal bleeding. She is on multiple medications. Came today in the morning to the emergency room. Looked pale dizzy and short of breath. I have decided to admit the patient to find exact source of bleeding manage. I discussed with Dr. Tao; Surgeon for evaluation and Dr. Chowdhury for GI evaluation. Labs are pending. Hospital Course Patient continues to have a mild amount of rectal bleeding even today. Discussed with the patient the results of colonoscopy which was basically negative for tumor but was positive for internal and external hemorrhoids. Discussed with Dr. Raymond. Recommended to perform a rectoscopy under anesthesia with the plan to decide the necessity and the volume of expected surgery to control bleeding. Meanwhile planned to start Proctocort suppository and follow the patient is an outpatient because she does not want surgical intervention now. Discussed with the patient if bleeding continues she must come back to the emergency room or call me might cellular number was given or come to the office. Discussed with Dr. Chowdhury who unfortunately did not put the procedure note yet but verbally explained me that there is no other source of bleeding during colonoscopy found. We will hold aspirin. Continue clear liquids. Resume preadmission medications. And be in touch with the patient daily. Home Meds Reported Medications Sodium Chloride* (Chaitanya-128*) 3.5 Gm Oint..gm., 1 APPLIC BOTH EYES QHS, TUB 06/30/18 Travoprost* (Travatan Z*) 2.5 Ml Drops, 1 DROP BOTH EYES HS, #1 BOTTLE 06/30/18 Pilocarpine Hcl* (Pilocarpine Hcl*) 1% - 15 Ml Drops, 1 DROP BOTH EYES QID, EA 06/30/18 Brimonidine Tartrate* (Alphagan P*) 0.1%-15 Ml Opht Drops, 1 DROP BOTH EYES Q8, #1 EA 06/30/18 Dorzolamide Hcl* (Dorzolamide Hcl*) 10 Ml Drops, 1 DROP BOTH EYES TID, #1 EA 06/30/18 Ezetimibe* (Zetia*) 10 Mg Tablet, 10 MG PO HS, TAB 06/30/18 Fenofibrate Nanocrystallized* (Fenofibrate*) 145 Mg Tablet, 145 MG PO DAILY, TAB 06/30/18 Cyclobenzaprine Hcl* (Cyclobenzaprine Hcl*) 10 Mg Tablet, 10 MG PO DAILY PRN for MUSCLE SPASMS, #60 TAB 06/30/18 Metoprolol Tartrate* (Lopressor*) 50 Mg Tab, 50 MG PO BID, #60 TAB 06/30/18 Magnesium Oxide* (Magnesium Oxide*) 400 Mg Tablet, 400 MG PO DAILY, TAB 06/30/18 Calcium Carbonate ([id number]) 500 Mg Tablet, 500 MG PO BID, TAB 06/30/18 Donepezil* (Donepezil*) 5 Mg Tablet, 5 MG PO DAILY, #30 TAB 06/30/18 Albuterol/Ipratropium* (Combivent Respimat*) 20-100 Mcg/Inh - 4 Gm Aer.w.adap, 1 PUFF INHALATION DAILY PRN for prn, #1 INHALER 06/30/18 Ferrous Sulfate* (Ferrous Sulfate*) 325 Mg Tabec, 325 MG PO BID, TAB 06/30/18 Ergocalciferol (Vitamin D2) (VITAMIN D2) 50,000 Unit Capsule, 70754 UNIT PO weekly, CAP 06/30/18 Celecoxib* (Celebrex*) 200 Mg Capsule, 200 MG PO DAILY, CAP 06/30/18 Meclizine Hcl* (Meclizine Hcl*) 25 Mg Tablet, 25 MG PO DAILY PRN for DIZZINESS, TAB 06/30/18 Atorvastatin* (Atorvastatin*) 40 Mg Tablet, 40 MG PO QHS, #30 TAB 06/30/18 Aspirin* (Aspirin* EC) 81 Mg Tablet.dr, 81 MG PO DAILY, TAB 06/30/18 Levothyroxine Sodium* (Levothyroxine Sodium*) 50 Mcg Tablet, 50 MCG PO BEFORE BREAKFAST, #30 TAB 06/30/18 Omeprazole* (Omeprazole*) 20 Mg Capsule.dr, 20 MG PO AC BREAKFAST, #30 CAP 06/30/18 Metformin* (Glucophage*) 1,000 Mg Tablet, 1000 MG PO BID, #60 TAB 06/30/18 Liraglutide (Victoza 3-Nico) 0.6 Mg/0.1 Ml Pen.injctr, 0.6 MG SQ DAILY, SYR 06/30/18 Discontinued Reported Medications Aspirin* (Aspirin* Chew) 81 Mg Tab.chew, 81 MG PO DAILY, TAB.CHEW 06/30/18 Levothyroxine Sodium* (Levothyroxine Sodium*) 50 Mcg Tablet, 50 MCG PO BEFORE BREAKFAST, #30 TAB 06/30/18 Levalbuterol* (Xopenex* HFA) 15 Gm Inha 05/21/10 Alendronate Sodium* (Fosamax*) 70 Mg Tablet 05/21/10 Bimatoprost (Lumigan) 2.5 Ml Drops 05/21/10 Dorzolamide-Timolol* (Cosopt*) 10 Ml Soln 05/21/10 Sodium Chloride* (Chaitanya-128*) 15 Ml Drops 05/21/10 Benazepril Hcl* (Benazepril Hcl*) 20 Mg Tablet 05/21/10 Pramipexole* (Mirapex*) 0.25 Mg Tablet 05/21/10 Amlodipine Besylate* (Amlodipine Besylate*) 10 Mg Tablet 05/21/10 Pioglitazone Hcl* (Actos*) 30 Mg Tablet 05/21/10 Pilocarpine Hcl* (Isopto Carpine*) 15 Ml Drops 05/21/10 Aspirin (Aspirin) 81 Mg Tablet 05/21/10 Fenofibrate, Micronized (Fenofibrate) 134 Mg Capsule 05/21/10 Fish Oil* (Fish Oil*) 1,000 Mg Cap 05/21/10 Furosemide* (Furosemide*) 40 Mg Tablet 05/21/10 Meclizine Hcl* (Meclizine Hcl*) 25 Mg Tablet 05/21/10 Metformin Hcl* (Metformin Hcl*) 850 Mg Tablet 05/21/10 Omeprazole* (Omeprazole*) 20 Mg Capsule. 05/21/10 Potassium Chloride (Potassium Chloride) 8 Meq Tablet.sa 05/21/10 Metoprolol Succinate (Toprol Xl) 25 Mg Tab.sr.24h 05/21/10 Calcium Carbonate/Vitamin D3 (Caltrate 600 W-D Tablet) 1 Tab Tablet 05/21/10 Atorvastatin (Lipitor) 40 Mg Tablet 05/21/10 Brimonidine Tartrate* (Alphagan P*) 10 Ml Drops 05/21/10 Levothyroxine Sodium (Levothroid) 75 Mcg Tablet 05/21/10 Hydrocodone Bit/Acetaminophen (Hydrocodone-Apap 5-500 Tab) 1 Tab Tablet 05/21/10 Naproxen* (Naproxen*) 500 Mg Tablet 05/21/10 Insulin Glargine,Hum.rec.anlog (Lantus) 100 U/Ml Cartridge 05/21/10 Insulin Glargine,Hum.rec.anlog (Lantus) 100 U/Ml Vial 05/21/10 Follow-up Plan To see Dr. Weathers in 5 days with repeat of CBC BMP. Primary Care Provider Alda Weathers MD Time spent on discharge: > 30 minutes Pending Labs Laboratory Tests Test 07/01/18 12:56 07/01/18 17:14 07/01/18 20:09 07/02/18 05:48 Bedside 100 148 144 Glucose mg/dL (70-220) mg/dL (70-220) mg/dL (70-220) White Blood 5.3 Count 10^3/ul (4.8-1 0.8) Red Blood 4.32 Count 10^6/ul (4.20- 5.40) Hemoglobin 12.1 g/dl (12.0-16. 0) Hematocrit 37.7 % (37.0-47.0) Mean 87.3 Corpuscular fl (82.0-101.0 Volume ) Mean 28.0 Corpuscular pg (29.0-33.0) Hemoglobin Mean 32.1 Corpuscular g/dl (32.0-37. Hemoglobin Conc 0) ent Red Cell 13.7 Distribution % (11.5-14.5) Width Platelet Count 137 10^3/UL (140-4 15) Mean Platelet 11.1 Volume fl (7.4-10.4) Immature 0.800 Granulocytes % % (0.001-0.429 ) Neutrophils % 71.5 % (39.0-77.0) Lymphocytes % 15.8 % (15.0-51.0) Monocytes % 8.3 % (0.0-11.0) Eosinophils % 3.0 % (0.0-7.0) Basophils % 0.6 % (0.0-2.0) Nucleated Red 0.0 Blood Cells % /100WBC (0.0-0 .0) Immature 0.040 Granulocytes # 10^3/ul (0.0-0 .031) Neutrophils # 3.8 10^3/ul (1.6-7 .5) Lymphocytes # 0.8 10^3/ul (0.8-2 .9) Monocytes # 0.4 10^3/ul (0.3-0 .9) Eosinophils # 0.2 10^3/ul (0.0-0 .5) Basophils # 0.0 10^3/ul (0.0-0 .1) Nucleated Red 0.0 Blood Cells # 10^3/ul (0.0-0 .0) Test 07/02/18 08:19 Bedside 154 Glucose mg/dL (70-220) ALDA WEATHERS MD Jul 02, 2018 11:20
--- NOTE | 2018-07-02 11:56 | CONS ---
Consultation Date/Type/Reason Admit Date/Time Jun 30, 2018 at 15:17 Initial Consult Date 06/30/18 Type of Consult hemeonc Requesting Provider: RAJAT BYRNE MD Date/Time of Note DATE: 07/02/18 TIME: 11:56 Exam/Review of Systems Exam Vitals Vital Signs Date Temp Pulse Resp B/P (MAP) Pulse Ox O2 O2 Flow FiO2 Time Delivery Rate 07/02/18 98.1 85 20 163/73 95 Room Air 10:19 (103) 07/02/18 21 08:48 07/01/18 2.0 12:37 Intake and Output 07/01/18 07/01/18 07/02/18 1515:00 23:00 07:00 IntakeIntake Total 240 ml 730 ml 750 ml BalanceBalance 240 ml 730 ml 750 ml Results Result Diagram: 07/02/18 0548 07/01/18 0550 Results 24hrs Laboratory Tests Test 07/01/18 12:56 07/01/18 17:14 07/01/18 20:09 07/02/18 05:48 Bedside Glucose 100 148 144 White Blood Count 5.3 Red Blood Count 4.32 Hemoglobin 12.1 Hematocrit 37.7 Mean Corpuscular 87.3 Volume Mean Corpuscular 28.0 L Hemoglobin Mean Corpuscular 32.1 Hemoglobin Concent Red Cell 13.7 Distribution Width Platelet Count 137 #L Mean Platelet Volume 11.1 H Immature 0.800 H Granulocytes % Neutrophils % 71.5 Lymphocytes % 15.8 Monocytes % 8.3 Eosinophils % 3.0 Basophils % 0.6 Nucleated Red Blood 0.0 Cells % Immature 0.040 H Granulocytes # Neutrophils # 3.8 Lymphocytes # 0.8 Monocytes # 0.4 Eosinophils # 0.2 Basophils # 0.0 Nucleated Red Blood 0.0 Cells # Test 07/02/18 08:19 Bedside Glucose 154 DOMINGO FOURNIER MD Jul 02, 2018 11:56
--- NOTE | 2018-07-02 13:53 | NUR ---
DISCHARGE NOTE IV D/C. Vitals stable. All discharge instructions given to pt and she stated she understood. Pt discharged from unit via wheelchair with all her belongings and her family as they are her ride home.
--- NOTE | 2018-07-02 14:25 | PN ---
DATE: 07/02/2018 SUBJECTIVE: The patient states that she feels okay and pain in the left lower quadrant is much less, but she states that today morning had a small bowel movement and she still had bleeding and blood with the stool mixed, but the nurses have not reported that because nobody has seen it. OBJECTIVE GENERAL: Awake, alert, oriented x3. VITAL SIGNS: Temperature 98.6, heart rate 89, respiration 18, blood pressure 163/73, saturation 95%. LABORATORY DATA: Today, WBC 530, hemoglobin 12.1, on admission was 15.7, hematocrit 37.7. Platelets are 137 . PHYSICAL EXAMINATION: HEART: Regular. LUNGS: Clear. ABDOMEN: Soft. Very minimal tenderness, left lower quadrant on deep respiration. EXTREMITIES: Legs negative. ASSESSMENT: The official report of the colonoscopy is not in the computer, but I talked to Dr. Byrne, the primary admitting physician today. He said he has talked to Dr. Chowdhury, Dr. Chowdhury, the GI colleague who do the colonoscopy has told him that there was no evidence of tumor or mass. Only a hemorrhoid, so I had a long discussion with Dr. yBrne. One of the things that we could probably book the patient for tomorrow, Friday and do an exam under anesthesia to find out the extent of the hemorrhoid and possibly do the procedure but Dr. Byrne thinks that he probably will discharge the patient to follow her in the office. meanwhile, I said if he is going to discharge the patient, then he should give her steroid suppository to decrease congestion and decrease the chance of bleeding. In any case, further decision and further plan will depend on Dr. Byrne if he going to discharge the patient or not. Dictated By: KEATON DELEON MD PS/NTS Conf#: [id number] DID#: [id number] CC: RAJAT BYRNE MD;*EndCC* MTDD
--- NOTE | 2018-07-02 14:43 | RADRPT ---
Echocardiogram Report Patient Name: YAYO GILLILAND Gender: Female Date: 1940 Study Date: 01-Jul-2018 Trimming Assembler: Tio Rojo [facility] Location: 5537-A Ref. Physician: ALTA PARRA Quality: Adequate Procedures: Transthoracic echocardiogram with complete 2D, M-Mode, and doppler examination. Indications: Evaluate Left Ventricular function, h/o ppm, chf?. 2D/M Mode Doppler Measurement Value Normal Ranges Measurement Value Normal Ranges LVIDd 2D 3.8 3.5 - 5.6 cm AV Peak Duane 1.7 m/sec LVIDs 2D 2.5 2.1 - 4.1 cm AV Peak PG 12.0 mmHg LVPWd 2D 1.2 0.6 - 1.1 cm LVOT Peak Duane 1.4 m/sec IVSd 2D 1.5 0.6 - 1.1 cm LVOT Peak PG 8.0 mmHg AoR Diam 2D 2.8 2.0 - 3.7 cm MV E Peak Duane 0.6 m/sec LA/Ao 2D 1 0 - 1 MV A Peak Duane 1.0 m/sec LA Dimen 2D 3.1 2.3 - 4.0 cm MV E/A 0.6 MV Decel Time 130 msec Lat E` Duane 0.1 m/sec Lateral E/E` 10.8 Med E` Duane 0.1 m/sec MV E/A 0.6 TR Peak Duane 3.0 m/sec TR Peak PG 36.0 mmHg RVSP 39.0 mmHg Findings Left Ventricle: Normal left ventricular systolic function. Normal left ventricular cavity size. Sigmoid septum. Ejection fraction is visually estimated at 65 %. Tissue Doppler/Mitral Doppler indices are consistent with impaired relaxation (Stage I diastolic dysfunction). Right Ventricle: Normal right ventricular size. Normal right ventricular systolic function. Pacemaker right heart. Left Atrium: There is mild enlargement of left atrium. Right Atrium: The right atrium is normal in size. Mitral Valve: Mild mitral leaflet calcification. Mild mitral annular calcification. Trace mitral regurgitation. Aortic Valve: Aortic valve not well visualized. No aortic regurgitation. Tricuspid Valve: Normal appearance of the tricuspid valve. Estimated peak PA systolic pressure 39 mmHg. There is mild tricuspid regurgitation. Pulmonic Valve: Pulmonic valve not well visualized. There is trace pulmonic regurgitation. Pericardium: Normal pericardium with no significant pericardial effusion. Aorta: Normal aortic root. IVC: Normal size and normal respiratory collapse consistent with normal right atrial pressure. Conclusions Normal left ventricular systolic function. Normal left ventricular cavity size. Sigmoid septum. Ejection fraction is visually estimated at 65 %. Tissue Doppler/Mitral Doppler indices are consistent with impaired relaxation (Stage I diastolic dysfunction). No significant valvular stenosis or regurgitation seen. Pacemaker right heart. Estimated peak PA systolic pressure 39 mmHg based on RA pressure of 3 mmHg. Electronically Signed By: Alta Parra 02-Jul-2018 14:41:55 -0800 Patient Name: YAYO GILLILAND Study Date: 01-Jul-2018 [id number]
== END 2018-07-02 13:43 | disposition home or self-care (01) | DRG 395 ==
LOC: E/R 11:47 → 5EC 15:17 → MS1 07-02 10:05
PROVIDERS: ADMIT Family Medicine; ATTEND Family Medicine
PROC: 0DJD8ZZ Inspection of Lower Intestinal Tract, Via Natural or Artificial Opening Endoscopic (ICD-10-PCS; principal; 2018-07-01 11:30)
DX: K64.1 Second degree hemorrhoids (principal); D63.8 Anemia in other chronic diseases classified elsewhere; E11.9 Type 2 diabetes mellitus without complications; Z95.0 Presence of cardiac pacemaker; I10 Essential (primary) hypertension
CPT/HCPCS: 36415; 71045; 74176; 80053; 81003; 82306; 82378; 82607; 82728; 82746; 82962; 83540; 83615; 83690; 84132; 84155; 84165; 84443; 84484; 84560; 85025; 85045; 85610; 85651; 85730; 86850; 86900; 86901; 93005; 93306; 94640; 94664; J1815; J3480; J7040; J7042